=== PATIENT | male | born 1960 | race Caucasian/White ===

== ENCOUNTER 2025-08-09 15:11 | Inpatient (IN) | payer MEDICARE, SELFPAY ==
[2025-08-09] VITALS (15 sets, daily range): BP systolic 84–147; BP diastolic 68–110; PULSE 84–140; RESP 14–23; TEMP 36.4–36.6; O2SAT 95–100; BMI 16.1
--- NOTE | ~2025-08-09 | XR_ITS ---
Examination: XR chest 1V portable Clinical History: shortness of breath Comparison: 08/09/2025 Technique: Portable AP Findings: Heart size upper limit of normal. Emphysema, scattered scarring, right apical bulla. Small pleural effusions. No acute bony abnormality. IMPRESSION: 1. No significant change from 2 days prior. 2. Pleural effusions with bibasilar atelectasis. 3. Emphysema. Reviewed, dictated and finalized at location R. TRY KILLER
--- NOTE | ~2025-08-09 | XR_ITS ---
EXAMINATION: XR chest PICC line, 08/11/2025 15:03 COLUMNIST/COMMENTATOR HISTORY: PICC placement COMPARISON: No comparisons available. Technique: Single view. Findings: Probable bullous formation noted in the right lung apex otherwise the lungs are clear. No pneumothorax. Heart is normal size. Mediastinal and hilar contours are within normal limits. Bony thorax no acute abnormality. Right PICC line terminates in the SVC. Impression: No acute cardiopulmonary abnormality. Reviewed, dictated and finalized at location P. MNIST/COMMENTATOR Impression: No acute cardiopulmonary abnormality.
--- NOTE | ~2025-08-09 | CT_ITS ---
EXAMINATION:CT diagnostic chest wo con DATE: 08/09/2025 15:49 INDICATION: Abnormal chest x-ray TECHNIQUE: Computed tomography (CT) of the chest was performed without intravenous contrast. The dose-length product (DLP) was 176.07 mGy-cm. COMPARISON: None. FINDINGS: Prominent right upper lobe peripheral/pleural air cysts are present with the largest in the apex measuring 7.6 x 7.2 x 5.7 cm. A 6.6 x 3.7 x 3.2 cm small cyst is present just medial and inferiorly. Smaller air cysts are noted along the margins of the right upper lobe, and a small air cysts are present in the left apical region as well. No pneumothorax. Small bilateral pleural effusions, right greater than left. Patchy groundglass opacification in the lung bases right greater than left. No focally defined consolidation. Diffuse centrilobular emphysematous changes in the lung do. Central large airways are patent. Heart and great vessels normal size. Small pericardial effusion with greatest transverse dimension of fluid measuring 8 mm. Diffuse degenerative changes throughout the bones. No acute process seen in the visualized portions of the upper abdomen. Coronary artery and atherosclerotic calcifications noted. Extra thoracic soft tissues unremarkable. IMPRESSION: 1. No pneumothorax. Large right apical air cyst formation with advanced emphysematous changes also present. Milder air cysts formation of the left apical region. 2. Small bilateral pleural effusions, and small pericardial effusion. Mild patchy groundglass opacification lung bases may represent mild edema versus developing pneumonitis. 3. Other chronic findings as above. Reviewed, dictated and finalized at location A. COACHING IMPRESSION: 1. No pneumothorax. Large right apical air cyst formation with advanced emphyse matous changes also present. Milder air cysts formation of the left apical andie on. 2. Small bilateral pleural effusions, and small pericardial effusion. Mild patc hy groundglass opacification lung bases may represent mild edema versus develop ing pneumonitis. 3. Other chronic findings as above.
--- NOTE | ~2025-08-09 | XR_ITS ---
EXAMINATION: XR chest 1V portable DATE: 08/09/2025 15:26 INDICATION: Shortness of breath TECHNIQUE: A single frontal view of the chest was obtained. COMPARISON: July 11, 2005 FINDINGS: Slight blunting of the lateral costophrenic angles may represent trace bibasilar pleural effusions. Mid and upper lung do are clear. Heart size upper limits normal. Radiolucency in the right apical region could be associated with variant azygos anatomy, however pneumothorax is not excluded. IMPRESSION: Possible small right apical pneumothorax. Trace bibasilar effusions. Correlate with chest CT. Reviewed, dictated and finalized at location A. STRINGER IMPRESSION: Possible small right apical pneumothorax. Trace bibasilar effusions . Correlate with chest CT.
--- NOTE | 2025-08-09 15:02 | ECG_ITS ---
Test Date: 2025-08-09 15:06:51 Measurements Intervals [place] Rate: 141 P: 0 MS: 0 QRS: 94 QRSD: 93 T: 82 QT: 292 QTc: 447 Interpretive Statements ATRIAL FIBRILLATION WITH RAPID VENTRICULAR RESPONSE RIGHT AXIS DEVIATION LEFT VENTRICULAR HYPERTROPHY WITH ST-T CHANGE CONSIDER ANTERIOR INFARCT, AGE INDETERMINATE HIGH LATERAL INFARCT, AGE INDETERMINATE ABNORMAL ECG No previous ECG available for comparison Electronically Signed On 08-09-2025 16:18:43 INFORMATICS NURSE SPECIALIST by Basilio Aquino D.O.
[2025-08-09 15:19] LABS: Hematocrit 46.3 % (42.0-52.0); Hemoglobin 15.1 g/dL (14.0-18.0); Mean Corpuscular HGB Conc 32.6 g/dl (32-36); Mean Corpuscular Hemoglobin 30.5 pg (26-34); Mean Corpuscular Volume 93.5 fl (80-100); Platelet Count Result 234 k/mm3 (150-375); Red Blood Count 4.95 M/mm3 (4.6-6.20); White Blood Count 8.0 K/mm3 (4.5-10.0)
[2025-08-09 15:30] LABS: Alanine Aminotransferase 19 U/L (6-50); Albumin Level 4.1 g/dL (3.5-5.1); Alkaline Phosphatase 71 U/L (38-126); Anion Gap 7 mmol/L (4-12); Aspartate Amino Transferase 22 U/L (17-59); Bilirubin,Total 0.8 mg/dL (0.2-1.3); Blood Urea Nitrogen 20 mg/dL (9-20); Calcium 9.2 mg/dL (8.4-10.2); Carbon Dioxide 24 mmol/L (22-30); Chloride 104 mmol/L (98-107); Estimated Glomerular Filt Rate > 60; Glucose 99 mg/dL (65-110); Potassium 4.5 mmol/L (3.4-5.0); Sodium 135 mmol/L (137-145); Total Protein 7.2 g/dL (6.3-8.2)
[2025-08-09 15:34] LABS: Band Neutrophils Percent 1 % (0-6); Neutrophils Absolute Manual 5.36 K/mm3 (1.3-6.7); Neutrophils Percent Manual 66 % (46-73); Total Cells Counted 100
[2025-08-09 15:35] LABS: Lymphocytes Absolute Manual 2.00 K/mm3 (1.1-4.5); Lymphocytes Percent Manual 25 % (18-44); Monocytes Absolute Manual 0.64 K/mm3 (0.1-0.90); Monocytes Percent Manual 8 % (3-9); Ovalocytes Occasional; Schistocytes None Seen
[2025-08-09] MEDS: dilTIAZem 100 MG/100 ML 100 MG/100 ML BAG IV CONT ×2 (15:56→16:20)
[2025-08-09 16:19] LABS: NT Pro B Type Natriuretic Pept 7800 pg/mL (19.9-100); Troponin I 0.050 ng/mL (0.000-0.034)
[2025-08-09] MEDS: SODIUM CHLORIDE 0.9% IV 1,000 ML 999 ML IV CONT ×2 (16:19→20:20)
[2025-08-09 16:49] LABS: Influenza A QL RT-PCR Negative (Negative); Influenza B QL RT-PCR Negative (Negative); RSV RNA, RT-PCR Negative (Negative); SARS-CoV-2 RNA PCR Negative (Negative)
--- NOTE | 2025-08-09 16:54 | ED_ITS ---
HPI - SOB/Dyspnea General Chief Complaint: Shortness of Breath/Dyspnea Stated Complaint: SOB History of Present Illness HPI Narrative: Patient is a 65-year-old male who presents ER with shortness of breath. Ongoing over last 4-5 days. He thought he would come down with a viral illness. Any time he exerts himself he is dyspneic after 2-3 steps. No chest pain. No productive cough. No fevers or chills. He went to an urgent care to be evaluated and was found to be in AFib with RVR. No previous history of atrial fibrillation. Related Data Allergies Allergy/AdvReac Type Severity Reaction Status Date / Time No Known Allergies Allergy Verified 08/09/25 15:23 Review of Systems 2 Review of Systems: All systems reviewed & are unremarkable except as noted in HPI and below Constitutional: Constitutional: Reports no additional constitutional complaints ENT: Reports system reviewed and no additional complaints, except as documented Cardiovascular: Cardiovascular: Reports no additional cardiovascular complaints Respiratory: Respiratory: Reports no additional respiratory complaints Gastrointestinal: Gastrointestinal: Reports no additional gastrointestinal complaints Musculoskeletal: Musculoskeletal: Reports no additional musculoskeletal complaints [facility] Past Medical History Medical History (Updated 08/09/25 @ 18:23 by Kale Doyle MD) Mitral valve prolapse Pneumothorax Surgical History Surgical History (Updated 08/09/25 @ 18:19 by Kale Doyle MD) History of hernia surgery Social History Social History Smoking end date: 08/30/11 Alcohol intake: never Exam 2 Narrative: GENERAL: Well-appearing, thin, and in no acute distress. HEAD: Normocephalic, atraumatic. ENT: Mucous membranes moist. NECK: Supple. CHEST: Coarse lung sounds that clear with coughing. No respiratory distress. HEART: Irregular regular rate and rhythm that is tachycardic. Normal peripheral pulses. ABDOMEN: Soft, nontender, nondistended. EXTREMITIES: Normal range of motion. No edema. SKIN: Warm, dry, no rash. NEURO: Alert and oriented x3. PSYCH: Normal mood and affect. Course Course Emergency Course: Heart rate responding well to diltiazem. Discussed with cardiology who recommends oral metoprolol 12.5 mg and also has some IM Lovenox at 1 milligram/kilogram. Patient will be admitted to the hospitalist service for further evaluation. No pneumothorax on CT scan. Vital Signs Vital signs: Vital Signs Temperature 97.8 F 08/09/25 14:48 Pulse Rate 139 H 08/09/25 14:48 Respiratory Rate 19 08/09/25 14:48 Blood Pressure 147/110 H 08/09/25 14:48 Pulse Oximetry 95 08/09/25 14:48 Oxygen Delivery Room Air 08/09/25 14:48 Temperature 97.8 F 08/09/25 14:48 Pulse Rate 114 H 08/09/25 16:34 Respiratory Rate 16 08/09/25 16:34 Blood Pressure 122/101 H 08/09/25 16:34 Pulse Oximetry 100 08/09/25 16:34 Oxygen Delivery Room Air 08/09/25 15:06 MDM Differential Diagnosis Differential Diagnosis: AFib with RVR, pneumothorax, sepsis, ACS Lab Data 08/09/25 15:11 08/09/25 15:11 Labs: Lab Results 08/09/25 08/09/25 Range/Units 15:10 15:11 WBC 8.0 (4.5-10.0) K/mm3 RBC 4.95 (4.6-6.20) M/mm3 Hgb 15.1 (14.0-18.0) g/dL Hct 46.3 (42.0-52.0) % MCV 93.5 (80-100) fl MCH 30.5 (26-34) pg MCHC 32.6 (32-36) g/dl RDW 13.1 (11.5-14.5) % Plt Count 234 (150-375) k/mm3 MPV 11.5 H (7.4-10.4) fl Immature Gran % (Auto) Not Reportable Neut % (Auto) Not Reportable Lymph % (Auto) Not Reportable [place] % (Auto) Not Reportable Eos % (Auto) Not Reportable Baso % (Auto) Not Reportable Lymph # (Auto) Not Reportable [place] # (Auto) Not Reportable Eos # (Auto) Not Reportable Baso # (Auto) Not Reportable Abs Immat Gran (auto) Not Reportable Absolute Neuts (auto) Not Reportable Absolute Nucleated RBC Not Reportable Total Counted 100 Neutrophils % (Manual) 66 (46-73) % Band Neutrophils % 1 (0-6) % Lymphocytes % (Manual) 25 (18-44) % Monocytes % (Manual) 8 (3-9) % Nucleated RBC % Not Reportable Abs Neuts (Manual) 5.36 (1.3-6.7) K/mm3 Abs Lymphs (Manual) 2.00 (1.1-4.5) K/mm3 Abs Monocytes (Manual) 0.64 (0.1-0.90) K/mm3 Platelet Estimate Adequate (Adequate) Ovalocytes Occasional Schistocytes None seen Sodium 135 L (137-145) mmol/L Potassium 4.5 (3.4-5.0) mmol/L Chloride 104 (98-107) mmol/L Carbon Dioxide 24 (22-30) mmol/L Anion Gap 7 (4-12) mmol/L BUN 20 (9-20) mg/dL Creatinine 0.96 (0.7-1.3) mg/dL Estim Creat Clear Calc Not Reportable Estimated GFR > 60 (59 - ) Glucose 99 (65-110) mg/dL Calcium 9.2 (8.4-10.2) mg/dL Total Bilirubin 0.8 (0.2-1.3) mg/dL AST 22 (17-59) U/L ALT 19 (6-50) U/L Alkaline Phosphatase 71 (38-126) U/L Troponin I 0.050 H* (0.000-0.034) ng/mL NT-Pro-B Natriuret Pep 7800 H (19.9-100) pg/mL Total Protein 7.2 (6.3-8.2) g/dL Albumin 4.1 (3.5-5.1) g/dL Influenza A (RT-PCR) Negative (Negative) Influenza B (RT-PCR) Negative (Negative) RSV (RT-PCR) Negative (Negative) SARS-CoV-2 RNA (RT-PCR) Negative (Negative) Imaging Data Radiologist's impression: ITS Impressions Chest X-Ray 08/09/25 15:27 IMPRESSION: Possible small right apical pneumothorax. Trace bibasilar effusions. Correlate with chest CT. Chest CT 08/09/25 15:51 IMPRESSION: 1. No pneumothorax. Large right apical air cyst formation with advanced emphysematous changes also present. Milder air cysts formation of the left apical region. 2. Small bilateral pleural effusions, and small pericardial effusion. Mild patchy groundglass opacification lung bases may represent mild edema versus developing pneumonitis. 3. Other chronic findings as above. ECG Data EKG #1: ECG completion date: 08/09/25 ECG completion time: 15:06 tachycardia (141), atrial fibrillation, non-specific ST changes, normal QRS, normal QT and right axis Critical Care Time Critical Care Time Critical Care Time: Yes Time Type: Intermittent Initial evaluation, discuss w/ involved parties, attempting to gather old records: 10 minutes Documenting medical record: 5 minutes Review of results (EKG's, labs, imaging): 5 minutes Serial repeat bedside evaluation: 10 minutes Discussing case with multiple memebers of the care team and consultants: 5 minutes Total Critical Care Time: 35 Discharge Plan Discharge Clinical Impression: Atrial fibrillation with RVR Patient Disposition: Still a Patient Condition: Stable Patient Language: Sinhala Follow-up/Referrals: UNKNOWN,DOCTOR [Primary Care Provider]
--- NOTE | 2025-08-09 17:51 | PC.NURSE ---
Pharmacy called by this RN about ordered metoprolol and lovenox. Per pharmacist, they are tubing it up now. Pt. states he no longer has palpitations and his SOB is gone. Pt. is resting comfortably in bed. No requests at this time.
[2025-08-09] MEDS: METOPROLOL TARTRATE 12.5 MG TABLET PO (18:01)
[2025-08-09] MEDS: ENOXAPARIN 60 MG/0.6 ML SYRINGE SUB-Q (18:01)
[2025-08-09 19:02] LABS: Troponin I 0.052 ng/mL (0.000-0.034)
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
--- NOTE | 2025-08-09 20:11 | WPCEDHO ---
ED Hand Off Checklist All vitals saved: YES IV Site documented: YES All med administrations documented: YES Triage Note Triage Note Pt to ED via [facility] from 08/09/25 14:48 [facility] with c/o a-fib with RVR. Pt states he thought he had a bug a week ago that wouldnt go away so he went to urgent care. Pt was put on a monitor and was observed to be in a-fib with RVR. Pt was taking plavix and vicodin but stopped taking them around 3 years ago. Pt denies pain, n/v/d, palpitations. Pt reports SOB. Pt states he had a mitral valve prolapse when he was a child. Pt received 300mL fluids from EMS. Allergies No Known Allergies Allergy (Verified 08/09/25 15:23) Active Medications including assessments/comments Diltiazem HCl (Cardizem 100 Mg/100 Ml) 100 mg in 100 mls @ 10 mls/hr IV CONT .Q10H STA; Protocol Stop: 08/10/25 02:00 Last Titration: 08/09/25 16:40 Dose: 10 mg/hr, 10 mls/hr Documented By: KJT Infusion/Titration Document 08/09/25 16:40 KJT (Rec: 08/09/25 17:00 KJT [id number]) Intake IV Site Peripheral Access Left Antecubital Intake 2.4 Cumulative Intake ( 2.5 bag) Cumulative Intake ( 2.5 Rx) Container Volume 97.5 Waste Amount 0 Dosing Dose Rate 10 Infusion Rate 10 Cumulative Dose 2.5 Increase/Decrease Increased Elapsed Time Elapsed Time ( 20m minutes) Diltiazem Infusion Assessment Document 08/09/25 16:40 KJT (Rec: 08/09/25 17:00 KJT [id number]) Infusion Action Diltiazem Infusion Titrated/Rate Changed Action Pulse Pulse Rate (60-100) 121 H Blood Pressure Blood Pressure (100/ 108/85 60-140/90) Blood Pressure Mean 92 (mmHg) Titration: 08/09/25 16:21 Dose: 7.5 mg/hr, 7.5 mls/hr Documented By: KJT Infusion/Titration Document 08/09/25 16:21 KJT (Rec: 08/09/25 16:22 KJT [id number]) Intake IV Site Peripheral Access Left Antecubital Intake 0.1 Cumulative Intake ( 0.1 bag) Cumulative Intake ( 0.1 Rx) Container Volume 99.9 Waste Amount 0 Dosing Dose Rate 7.5 Infusion Rate 7.5 Cumulative Dose 0.1 Increase/Decrease Increased Elapsed Time Elapsed Time ( 1m minutes) Diltiazem Infusion Assessment Document 08/09/25 16:21 KJT (Rec: 08/09/25 16:22 KJT [id number]) Infusion Action Diltiazem Infusion Titrated/Rate Changed Action Pulse Pulse Rate (60-100) 108 H Blood Pressure Blood Pressure (100/ 102/89 60-140/90) Blood Pressure Mean 93 (mmHg) Admin: 08/09/25 16:20 Dose: 5 mg/hr, 5 mls/hr Documented By: SHERRIE Infusion/Titration Document 08/09/25 16:20 KJT (Rec: 08/09/25 16:20 KJT [id number]) Intake IV Site Peripheral Access Left Antecubital Container Volume 100 Waste Amount 0 Dosing Dose Rate 5 Infusion Rate 5 Increase/Decrease Started Elapsed Time Elapsed Time ( 0m minutes) Diltiazem Infusion Assessment Document 08/09/25 16:20 KJT (Rec: 08/09/25 16:20 KJT [id number]) Infusion Action Diltiazem Infusion Initiated Action Pulse Pulse Rate (60-100) 118 H Blood Pressure Blood Pressure (100/ 102/89 60-140/90) Blood Pressure Mean 93 (mmHg) Administered/Completed Medications Discontinued Medications Diltiazem HCl (Diltiazem Hcl Inj 25 Mg/5 Ml Vial) 10 mg IV PUSH ONCE STA Stop: 08/09/25 15:25 Last Admin: 08/09/25 15:34 Dose: 10 mg Documented By: TRISTON Enoxaparin Sodium (Enoxaparin 60 Mg/0.6 Ml Syringe) 60 mg SUB-Q ONCE STA Stop: 08/09/25 17:29 Last Admin: 08/09/25 18:01 Dose: 60 mg Documented By: CAYETANO Diltiazem HCl (Cardizem 100 Mg/100 Ml) 100 mg in 100 mls @ 0 mls/hr IV CONT .Q0M STA Stop: 08/09/25 15:39 Last Admin: 08/09/25 15:56 Dose: 5 mg/hr, 5 mls/hr Documented By: SHERRIE Sodium Chloride (Normal Saline Iv) 1,000 mls @ 999 mls/hr IV CONT .Q1H1M STA Stop: 08/09/25 17:15 Last Infusion: 08/09/25 17:20 Dose: Infused Documented By: Admin: 08/09/25 16:19 Dose: 999 mls/hr Documented By: SHERRIE Sodium Chloride (Normal Saline Iv) Confirm Administered Dose 1,000 mls @ as directed .ROUTE .STK-MED ONE Stop: 08/09/25 16:15 Last Admin: 08/09/25 16:18 Dose: Not Given Documented By: SHERRIE Non-Admin Reason: Duplicate Dose Metoprolol Tartrate (Metoprolol Tartrate 12.5 Mg Tablet) 12.5 mg PO ONCE STA Stop: 08/09/25 17:29 Last Admin: 08/09/25 18:01 Dose: 12.5 mg Documented By: CAYETANO Notes 08/09/25 17:51 Nurse Note by [facility] called by this RN about ordered metoprolol and lovenox. Per pharmacist, they are tubing it up now. Pt. states he no longer has palpitations and his SOB is gone. Pt. is resting comfortably in bed. No requests at this time. Initialized on 08/09/25 17:51 - END OF NOTE Interventions/Assessments Cardiac Monitoring Start: 08/09/25 14:43 Freq: Status: Active Protocol: Document 08/09/25 15:35 JPM (Rec: 08/09/25 15:35 JPM [id number]) Management Advisor Assessment Management Advisor Yes Applied Pulse Rate (60-100) 140 H EKG Rythm Atrial Fibrillation IV / Saline Lock, Insert Start: 08/09/25 15:03 Freq: STAT Status: Active Protocol: Document 08/09/25 15:16 MCO (Rec: 08/09/25 15:17 MCO [id number]) IV Assessment Peripheral Access Right Antecubital IV Catheter Access Initiated IV Insertion Date 08/09/25 IV Insertion Time 15:17 Catheter Gauge 18 Ultrasound Used for No Placement IV Site Assessment WNL IV Care and WNL Maintenance Peripheral Access Left Antecubital IV Catheter Access Initiated Before Arrival IV Insertion Date 08/09/25 Catheter Gauge 20 IV Site Assessment WNL IV Care and WNL Maintenance PA: Cardiovascular Assessment Start: 08/09/25 14:43 Freq: Status: Active Protocol: Document 08/09/25 15:06 MCO (Rec: 08/09/25 15:16 MCO [id number]) Cardiovascular Assessment Cardiovascular Dizziness,Dyspnea,Lightheadedness Symptoms Skin Description Warm Jugular Vein None Distention PA: Respiratory Assessment Start: 08/09/25 14:43 Freq: Status: Active Protocol: Document 08/09/25 15:06 MCO (Rec: 08/09/25 15:16 MCO [id number]) Respiratory Assessment Symptoms Congestion,Shortness of Breath at Rest,Shortness of Breath With Exertion Effort Short of Breath Pattern Regular Depth Normal Posterior Bilateral Throughout Phase Inspiratory & Expiratory Lung Sounds Diminished Cough Description Acute,Productive Cough Frequency Intermittent Sputum Amount Small Sputum Color Green,White Cough Reflex Present Oxygen Delivery Oxygen Delivery Room Air Last Vital Signs Temperature 97.8 F 08/09/25 14:48 Pulse Rate 87 08/09/25 20:04 Respiratory Rate 23 H 08/09/25 20:04 Pulse Oximetry 99 08/09/25 20:04 Blood Pressure 84/68 L 08/09/25 20:04 Blood Pressure Mean 73 08/09/25 20:04 Blood Pressure Position Supine 08/09/25 20:04 Oxygen Delivery Room Air 08/09/25 15:06 Weight 68 kg 08/09/25 16:58 Last Result - Abnormals Only MPV 11.5 fl (7.4-10.4) H 08/09/25 15:11 Sodium 135 mmol/L (137-145) L 08/09/25 15:11 Troponin I 0.052 ng/mL (0.000-0.034) H* 08/09/25 18:22 NT-Pro-B Natriuret Pep 7800 pg/mL (19.9-100) H 08/09/25 15:10 Most Recent Suicide Severity Rating Suicide Severity Rating NO RISK INDICATED 08/09/25 14:48
--- NOTE | 2025-08-09 20:31 | ECG_ITS ---
Test Date: 2025-08-10 07:47:00 Measurements Intervals [place] Rate: 93 P: 0 OH: 0 QRS: 93 QRSD: 94 T: 121 QT: 374 QTc: 467 Interpretive Statements ATRIAL FIBRILLATION RIGHT AXIS DEVIATION ANTEROSEPTAL INFARCT, AGE INDETERMINATE HIGH LATERAL INFARCT, AGE INDETERMINATE BASELINE ARTIFACT- V3-V5 ABNORMAL ECG Compared to ECG 08/09/2025 15:06:51 HEART RATE HAS DECREASED Electronically Signed On 08-10-2025 08:01:36 REAL ESTATE CLOSING COORDINATOR by Basilio Aquino D.O.
--- NOTE | 2025-08-09 22:15 | ADMGEN ---
This patient, Anabel Gayle, was admitted to IMU Room 211-01 at 2039. Patient/family oriented to hospital policies and general routines including ID bracelet, bed and alarms, visiting hours, pain management, procedures, bathroom and other care routines, personal items, smoking policy, room service/diet, and visiting hours. Information on how to activate the Rapid Response Team has been discussed. Patient/Family are encouraged to report perceived risks to care and to ask questions if they do not understand what they are told or what they should do.
[2025-08-09 22:55] LABS: Troponin I 0.056 ng/mL (0.000-0.034)
[2025-08-09 23:08] LABS: Thyroid Stimulating Hormone Reflex 5.440 uIU/mL (0.465-4.68)
[2025-08-10] VITALS (26 sets, daily range): BP systolic 91–144; BP diastolic 61–120; PULSE 74–122; RESP 15–22; TEMP 36.3–36.8; O2SAT 92–99
--- NOTE | 2025-08-10 | ECHO_ITS ---
Patient Info Name: Anabel Gayle Age: 65 years : 1960 Gender: Male Ht: 64 in Wt: 149 lbs BSA: 1.76 m2 HR: 93 bpm BP: 96 / 61 mmHg Heart Rhythm: Atrial Fibrillation Technical Quality: Good Exam Date: 08/10/2025 8:55 AM Patient Status: I Admit Date: 08/09/2025 Exam Type: CA echo doppler color flow Complete two-dimensional, color flow and Doppler transthoracic echocardiogram is performed. Staff Referring Physician: Kale Doyle MD Clothing Sales Assistant: Sondra Ruff Attending Provider: Magda Corral Summary 1. Complete two-dimensional, color flow and Doppler transthoracic echocardiogram is performed. 2. The left ventricle is moderately dilated with severely reduced systolic function. There is severe eccentric left ventricular hypertrophy. The left ventricular ejection fraction is visually estimated to be 25-30%. 3. The right ventricle is normal in size with mildly reduced systolic function. 4. The mitral valve leaflets are normal. There is posteriorly directed eccentric mitral regurgitation that is likely severe. Left Ventricle The left ventricle is moderately dilated with severely reduced systolic function. There is severe eccentric left ventricular hypertrophy. The left ventricular ejection fraction is visually estimated to be 25-30%. Right Ventricle The right ventricle is normal in size with mildly reduced systolic function. Left Atria The left atrium is dilated. Right Atria The right atrium is dilated. Atrial Septum The atrial septum is normal. Aortic Valve The aortic valve is trileaflet and opens well. There is no aortic regurgitation. Pulmonic Valve The pulmonic valve is grossly normal. There is no pulmonic valve regurgitation. Mitral Valve The mitral valve leaflets are normal. There is posteriorly directed eccentric mitral regurgitation that is likely severe. Tricuspid Valve The tricuspid valve is normal. There is trace tricuspid regurgitation. Pericardium/Pleural There is trace pericardial effusion. Inferior Vena Cava Normal inferior vena cava with <50% collapse upon inspiration consistent with elevated right atrial pressure, 8 mmHg. Aorta The aortic root at the level of the sinus of Valsalva measures 3.7 cm in diameter. Left Ventricular Outflow Tract Name Value Normal LVOT 2D LVOT Diameter 2.0 cm LVOT Doppler LVOT Peak Velocity 62 cm/s LVOT Peak Gradient 1 mmHg LVOT Mean Gradient 0 mmHg LVOT VTI 10 cm LVOT VTI/AV VTI Ratio 0.6 LVOT Stroke Volume 32 ml LVOT CO 2.0 l/min LVOT CI 1.2 l/min/m2 Pulmonic Valve Name Value Normal RVOT Doppler RVOT Peak Velocity 43 cm/s RVOT Peak Gradient 1 mmHg PV Doppler PV Peak Velocity 72 cm/s PV Peak Gradient 1 mmHg Mitral Valve Name Value Normal MV Doppler MV Peak Gradient 13 mmHg MV Mean Gradient 5 mmHg MV Area (Cont Eq VTI) 1.2 cm2 MV Regurgitation Doppler MR Peak Gradient 57 mmHg MV Diastolic Function MV E Peak Velocity 178 cm/s MV A Peak Velocity 0 cm/s MV E/A 450.1 MV Decel Time (PW) 142 ms MV Annular TDI MV E/e' (Septal) 25.6 MV E/e' (Lateral) 24.1 MV E/e' (Average) 24.8 Tricuspid Valve Name Value Normal TV Regurgitation Doppler TR Peak Velocity 402 cm/s TR Peak Gradient 65 mmHg Estimated PAP/RSVP RA Pressure 8 mmHg <=5 PA Systolic Pressure 73 mmHg <36 RV Systolic Pressure 73 mmHg <36 TV Annular TDI TV Lateral Candelaria s' Velocity 8.8 cm/s >=9.5 Aorta Name Value Normal Ascending Aorta Ao Root Diameter (MM) 3.6 cm Ao Root Diam Index (MM) 2.1 cm/m2 Aortic Valve Name Value Normal AV Doppler AV Peak Velocity 102 cm/s AV Peak Gradient 4 mmHg AV Mean Gradient 2 mmHg AV VTI 16 cm AV Area (Cont Eq VTI) 2.0 cm2 >=3.0 AV Area (Cont Eq Matthew) 2.0 cm2 AV DI (Matthew) 0.61 AV Regurgitation 2D LVOT Area 3.2 cm2 Ventricles Name Value Normal LV Dimensions 2D/MM IVS Diastolic Thickness (2D) 0.8 cm 0.6-1.0 LVID Diastole (2D) 7.0 cm 4.2-5.8 LVIW Diastolic Thickness (2D) 0.8 cm 0.6-1.0 LVID Systole (2D) 5.8 cm 2.5-4.0 LVOT Diameter 2.0 cm LV Mass (2D Cubed) 247.92 g 88.00-224.00 LV Mass Index (2D Cubed) 141 g/m2 49-115 Relative Wall Thickness (2D) 0.23 <=0.42 LV Fractional Shortening/Ejection Fraction 2D/MM LV Fractional Shortening (2D) 18 % 25-43 LV EF (2D Teichholz) 37 % LV Diastolic Volume (4C MOD) 192 ml LV EF (4C MOD) 46 % LV Diastolic Volume (2C MOD) 252 ml LV EF (2C MOD) 44 % LV Diastolic Volume (BP MOD) 229 ml 62-150 LV Diastolic Volume Index (BP MOD) 130 ml/m2 34-74 LV Systolic Volume (BP MOD) 130 ml 21-61 LV Systolic Volume Index (BP MOD) 74 ml/m2 11-31 LV EF (BP MOD) 43 % 52-72 LV Diastolic Length (4C) 9.3 cm LV Systolic Length (4C) 7.5 cm LV Stroke Volume (4C MOD) 88 ml Atria Name Value Normal LA Dimensions LA Dimension (MM) 5.5 cm 3.0-4.0 LA Volume (4C A-L) 107 ml RA Dimensions RA Area (4C) 17.5 cm2 <=18.0 Report Signatures
[2025-08-10] MEDS: dilTIAZem 100 MG/100 ML 100 MG/100 ML BAG IV CONT (01:55)
[2025-08-10] MEDS: FUROSEMIDE INJ 40 MG/4 ML VIAL 20 MG IV PUSH ×3 (02:37→18:23)
[2025-08-10 04:28] LABS: Anion Gap 7 mmol/L (4-12); Blood Urea Nitrogen 18 mg/dL (9-20); Calcium 8.9 mg/dL (8.4-10.2); Carbon Dioxide 24 mmol/L (22-30); Chloride 107 mmol/L (98-107); Estimated CRCL calculation 60 ml/min; Estimated Glomerular Filt Rate > 60; Glucose 82 mg/dL (65-110); Potassium 4.2 mmol/L (3.4-5.0); Sodium 138 mmol/L (137-145)
[2025-08-10] MEDS: levoFLOXacin 750 MG/D5W 150 ML 750 MG/150 ML BAG 100 MG IVPB (09:32)
[2025-08-10] MEDS: METOPROLOL TARTRATE 12.5 MG TABLET PO (09:33)
[2025-08-10] MEDS: APIXABAN 5 MG TABLET PO ×2 (09:33→21:16)
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
[2025-08-10 11:11] LABS: MRSA (PCR) NOT DETECTED (NOT DETECTE)
--- NOTE | 2025-08-10 14:27 | PM.IMPN2 ---
Assessment and Plan Assessment and Plan (1) Atrial fibrillation with RVR: Code(s): I48.91 - Unspecified atrial fibrillation Status: Acute (2) Elevated troponin: Code(s): R79.89 - Other specified abnormal findings of blood chemistry Status: Acute (3) Atherosclerosis: Code(s): I70.90 - Unspecified atherosclerosis Status: Acute (4) Cystic-bullous disease of lung: Code(s): J98.4 - Other disorders of lung Status: Acute (5) CHF (congestive heart failure): Qualifiers: Heart failure type: high output Qualified Code(s): I50.83 - High output heart failure Code(s): I50.9 - Heart failure, unspecified Status: Acute Plan Afib RVR still tachycardic Continue Metoprolol 25mg bid and eliquis For COLETTE with cardioversion on Wednesday cardiology following Pneumonia CT Chest reviewed Blood culture, MRSA Started Levaquin Cardiomyopathy ER showed EF 25-30% Continue Lasix Lifevest on discharge Elevated troponin likely demand from Afib trend troponin DVT prophylaxis on Eliquis Monitor Subjective Date/time seen: 08/10/25 14:27 Interval history: Comfortable at bedside Review of Systems Review of Systems: 12 systems were reviewed with pertinent positives and negatives per HPI. Except as documented in the HPI, all other systems were reviewed and are negative. Exam Narrative: Weight 68 kg BMI 18.2 Const: Other: Thin body habitus, appears older than stated age, no acute distress HENMT: Other: Mucous membranes are moist, no oral pharyngeal erythema, dentures in upper and lower jaw Eyes: Other: No scleral icterus, bilateral lens implants noted, pupils are equal and reactive Neck: Other: Positive JVD, no lymphadenopathy Resp: Other: Accessory muscle use, tachypnea, crackles at the bases Cardio: Other: Irregularly irregular, tachycardic, 2+ bilateral radial and pedal pulses GI: Other: Soft, nontender, nondistended, positive bowel sounds Skin: Other: No jaundice, no pallor Neuro: Other: Alert orient x4, speech is clear, no facial asymmetry, no localizing neurologic deficits noted during the course of conversation Extrem: Other: 1+ pitting edema to the ankles bilaterally Psych: Other: The patient has markedly pressured speech, flight of thoughts, difficult to redirect, pleasant and cooperative Objective Data Vital Signs Vital Signs: Vital Signs - 24 hr 12/11/25 14:48 08/09/25 15:06 08/09/25 15:35 Temperature 97.8 F Pulse Rate 139 H 140 H Respiratory Rate 19 Blood Pressure 147/110 H Pulse Oximetry 95 Oxygen Delivery Room Air Room Air 08/09/25 15:56 08/09/25 16:20 08/09/25 16:21 Temperature Pulse Rate 111 H 118 H 108 H Respiratory Rate Blood Pressure 103/69 102/89 102/89 Pulse Oximetry Oxygen Delivery 08/09/25 16:34 08/09/25 16:40 08/09/25 17:51 Temperature Pulse Rate 114 H 121 H 95 Respiratory Rate 16 20 Blood Pressure 122/101 H 108/85 107/91 H Pulse Oximetry 100 97 Oxygen Delivery 08/09/25 18:01 08/09/25 18:58 08/09/25 20:04 Temperature Pulse Rate 108 H 89 87 Respiratory Rate 14 23 H Blood Pressure 114/95 H 84/68 L Pulse Oximetry 98 99 Oxygen Delivery 08/09/25 20:40 08/09/25 20:41 08/09/25 22:00 Temperature 97.6 F Pulse Rate 89 91 91 Respiratory Rate 16 Blood Pressure 101/74 Pulse Oximetry 100 Oxygen Delivery 08/09/25 22:00 08/09/25 23:03 08/10/25 00:00 Temperature Pulse Rate 84 Respiratory Rate Blood Pressure Pulse Oximetry Oxygen Delivery Room Air Room Air 08/10/25 00:00 08/10/25 00:47 08/10/25 01:53 Temperature 97.7 F Pulse Rate 74 86 104 H Respiratory Rate 18 Blood Pressure 91/76 L Pulse Oximetry 94 Oxygen Delivery 08/10/25 01:55 08/10/25 02:00 08/10/25 04:00 Temperature Pulse Rate 99 Respiratory Rate Blood Pressure 144/120 H Pulse Oximetry Oxygen Delivery Room Air 08/10/25 04:00 08/10/25 04:00 08/10/25 04:21 Temperature 97.7 F Pulse Rate 97 98 90 Respiratory Rate 15 Blood Pressure 96/61 L Pulse Oximetry 97 Oxygen Delivery 08/10/25 06:00 08/10/25 06:00 08/10/25 06:00 Temperature Pulse Rate 93 93 89 Respiratory Rate Blood Pressure 120/93 H Pulse Oximetry Oxygen Delivery 08/10/25 07:49 08/10/25 07:56 08/10/25 08:00 Temperature 98.2 F Pulse Rate 90 Respiratory Rate 22 H Blood Pressure 111/71 Pulse Oximetry 92 95 Oxygen Delivery Room Air Room Air 08/10/25 08:00 08/10/25 09:33 08/10/25 10:00 Temperature Pulse Rate 103 H 101 H 94 Respiratory Rate Blood Pressure Pulse Oximetry Oxygen Delivery 08/10/25 10:41 08/10/25 11:37 08/10/25 12:34 Temperature 97.4 F L Pulse Rate 122 H 95 Respiratory Rate 22 H Blood Pressure 104/62 114/94 H Pulse Oximetry 98 Oxygen Delivery Room Air 08/10/25 12:36 Temperature Pulse Rate 108 H Respiratory Rate Blood Pressure Pulse Oximetry Oxygen Delivery Intake/Output Intake/Output: Intake & Output 08/07/25 08/08/25 08/09/25 08/10/25 23:59 23:59 23:59 23:59 Intake Total 1055.8 1177.4 Output Total 1525 Balance 1055.8 -347.6 Meds/Results Medications: Active Medications Generic Name Dose Route Start Last Admin Trade Name Freq PRN Reason Stop Dose Admin Acetaminophen 650 mg 08/09/25 17:59 Acetaminophen 325 Mg Tablet PO Q4H PRN Mild Pain (1-3) or Fever Hydrocodone Bitart/Acetaminophen 1 tab 08/09/25 17:59 Hydrocodone/Acetaminophen (*Crx) 5-325 Mg Tablet PO Q4H PRN Pain Rated 4-6 Apixaban 5 mg 08/10/25 09:00 08/10/25 09:33 Apixaban 5 Mg Tablet PO 5 mg Q12HR MICAELA Administration Furosemide 20 mg 08/10/25 09:00 08/10/25 09:33 Furosemide Inj 40 Mg/4 Ml Vial IV PUSH 20 mg BID MICAELA Administration Levofloxacin/Dextrose 750 mg in 150 mls @ 100 mls/hr 08/10/25 08:00 08/10/25 12:00 Levaquin 750 Mg/D5w 150 Ml IVPB Infused QAM MICAELA Infusion Metoprolol Tartrate 25 mg 08/10/25 21:00 Metoprolol Tartrate 25 Mg Tablet PO Q12HR MICAELA Ondansetron HCl 4 mg 08/09/25 17:59 Ondansetron Inj 4 Mg/2 Ml Vial IV PUSH Q4H PRN Nausea Perflutren Lipid Microsphere 0 ml 08/09/25 19:55 Perflutren Lipid Microspheres 1.5 Ml Vial Diluted To 10 Ml Total Volume IV PUSH 08/12/25 19:56 ONCE PRN adequate visualization Protocol Sacubitril/Valsartan 1 tab 08/10/25 21:00 Sacubitril/Valsartan 12-13 Mg Tablet PO Q12HR [facility] Radiology Results: ITS Impressions Chest X-Ray 08/09/25 15:27 IMPRESSION: Possible small right apical pneumothorax. Trace bibasilar effusions. Correlate with chest CT. Chest CT 08/09/25 15:51 IMPRESSION: 1. No pneumothorax. Large right apical air cyst formation with advanced emphysematous changes also present. Milder air cysts formation of the left apical region. 2. Small bilateral pleural effusions, and small pericardial effusion. Mild patchy groundglass opacification lung bases may represent mild edema versus developing pneumonitis. 3. Other chronic findings as above. Labs Labs: Laboratory Results - last 24 hr 08/09/25 08/09/25 08/09/25 15:10 15:11 18:22 WBC 8.0 RBC 4.95 Hgb 15.1 Hct 46.3 MCV 93.5 MCH 30.5 MCHC 32.6 RDW 13.1 Plt Count 234 MPV 11.5 H Immature Gran % (Auto) Not Reportable Neut % (Auto) Not Reportable Lymph % (Auto) Not Reportable [place] % (Auto) Not Reportable Eos % (Auto) Not Reportable Baso % (Auto) Not Reportable Lymph # (Auto) Not Reportable [place] # (Auto) Not Reportable Eos # (Auto) Not Reportable Baso # (Auto) Not Reportable Abs Immat Gran (auto) Not Reportable Absolute Neuts (auto) Not Reportable Absolute Nucleated RBC Not Reportable Total Counted 100 Neutrophils % (Manual) 66 Band Neutrophils % 1 Lymphocytes % (Manual) 25 Monocytes % (Manual) 8 Nucleated RBC % Not Reportable Abs Neuts (Manual) 5.36 Abs Lymphs (Manual) 2.00 Abs Monocytes (Manual) 0.64 Platelet Estimate Adequate Ovalocytes Occasional Schistocytes None seen Sodium 135 L Potassium 4.5 Chloride 104 Carbon Dioxide 24 Anion Gap 7 BUN 20 Creatinine 0.96 Estim Creat Clear Calc Not Reportable Estimated GFR > 60 Glucose 99 Calcium 9.2 Total Bilirubin 0.8 AST 22 ALT 19 Alkaline Phosphatase 71 Troponin I 0.050 H* 0.052 H* NT-Pro-B Natriuret Pep 7800 H Total Protein 7.2 Albumin 4.1 TSH (Reflex) Nasal MRSA (PCR) Influenza A (RT-PCR) Negative Influenza B (RT-PCR) Negative RSV (RT-PCR) Negative SARS-CoV-2 RNA (RT-PCR) Negative 08/09/25 08/10/25 08/10/25 22:02 03:35 09:49 WBC RBC Hgb Hct MCV MCH MCHC RDW Plt Count MPV Immature Gran % (Auto) Neut % (Auto) Lymph % (Auto) [place] % (Auto) Eos % (Auto) Baso % (Auto) Lymph # (Auto) [place] # (Auto) Eos # (Auto) Baso # (Auto) Abs Immat Gran (auto) Absolute Neuts (auto) Absolute Nucleated RBC Total Counted Neutrophils % (Manual) Band Neutrophils % Lymphocytes % (Manual) Monocytes % (Manual) Nucleated RBC % Abs Neuts (Manual) Abs Lymphs (Manual) Abs Monocytes (Manual) Platelet Estimate Ovalocytes Schistocytes Sodium 138 Potassium 4.2 Chloride 107 Carbon Dioxide 24 Anion Gap 7 BUN 18 Creatinine 0.95 Estim Creat Clear Calc 60 Estimated GFR > 60 Glucose 82 Calcium 8.9 Total Bilirubin AST ALT Alkaline Phosphatase Troponin I 0.056 H* NT-Pro-B Natriuret Pep Total Protein Albumin TSH (Reflex) 5.440 H Nasal MRSA (PCR) Not detected Influenza A (RT-PCR) Influenza B (RT-PCR) RSV (RT-PCR) SARS-CoV-2 RNA (RT-PCR) Quality VTE Prophylaxis VTE prophylaxis: pharmacologic ordered (Lovenox 1 milligram/kilogram followed by initiation of Eliquis)
[2025-08-10 15:15] LABS: Free T4 Free Thyroxine Reflex 1.41 ng/dL (0.78-2.19)
[2025-08-10 16:02] LABS: Total Triiodothyronine (T3) 1.16 NG/ML (0.82-1.58)
[2025-08-10 18:07] LABS: Cholesterol 182 mg/dL (0-200); HDL Direct 36 mg/dL; Triglycerides 100 mg/dL (<150)
[2025-08-10] MEDS: METOPROLOL TARTRATE 25 MG TABLET PO ×2 (18:23→21:16)
[2025-08-10] MEDS: SACUBITRIL/VALSARTAN 12-13 MG TABLET 1 TAB PO (21:16)
[2025-08-11] VITALS (30 sets, daily range): BP systolic 64–114; BP diastolic 39–94; PULSE 96–133; RESP 14–25; TEMP 36.4–36.6; O2SAT 92–100
[2025-08-11 08:41] LABS: Hematocrit 45.9 % (42.0-52.0); Hemoglobin 15.3 g/dL (14.0-18.0); Mean Corpuscular HGB Conc 33.3 g/dl (32-36); Mean Corpuscular Hemoglobin 30.2 pg (26-34); Mean Corpuscular Volume 90.7 fl (80-100); Platelet Count Result 238 k/mm3 (150-375); Red Blood Count 5.06 M/mm3 (4.6-6.20); White Blood Count 7.6 K/mm3 (4.5-10.0)
[2025-08-11 08:52] LABS: Alanine Aminotransferase 19 U/L (6-50); Albumin Level 3.6 g/dL (3.5-5.1); Alkaline Phosphatase 66 U/L (38-126); Anion Gap 8 mmol/L (4-12); Aspartate Amino Transferase 22 U/L (17-59); Bilirubin,Total 1.1 mg/dL (0.2-1.3); Blood Urea Nitrogen 17 mg/dL (9-20); Calcium 9.1 mg/dL (8.4-10.2); Carbon Dioxide 23 mmol/L (22-30); Chloride 104 mmol/L (98-107); Estimated CRCL calculation 50 ml/min; Estimated Glomerular Filt Rate > 60; Glucose 154 mg/dL (65-110); Magnesium 1.5 mg/dL (1.6-2.3); Potassium 3.9 mmol/L (3.4-5.0); Sodium 135 mmol/L (137-145); Total Protein 6.5 g/dL (6.3-8.2)
[2025-08-11] MEDS: levoFLOXacin 750 MG/D5W 150 ML 750 MG/150 ML BAG 100 MG IVPB (09:35)
[2025-08-11] MEDS: FUROSEMIDE INJ 40 MG/4 ML VIAL 20 MG IV PUSH (09:35)
[2025-08-11] MEDS: APIXABAN 5 MG TABLET PO ×2 (09:35→20:10)
[2025-08-11] MEDS: METOPROLOL TARTRATE 25 MG TABLET PO (09:35)
[2025-08-11] MEDS: SACUBITRIL/VALSARTAN 12-13 MG TABLET 1 TAB PO (09:35)
--- NOTE | 2025-08-11 10:15 | P.PNCA_ITS ---
Progress Note: A&P Assessment and Plan (1) Atrial fibrillation with RVR: Code(s): I48.91 - Unspecified atrial fibrillation Status: Acute Assessment and Plan: Presents with atrial fibrillation with rapid ventricular response. This is a new diagnosis. I discussed the diagnosis of atrial fibrillation with her including the pathophysiology, management strategies, and complications/risks of atrial fibrillation. Given that he also has severe cardiomyopathy with an EF of 25-30%, I think getting him back into sinus rhythm be the best strategy. However, unfortunately he has already eaten today therefore cannot proceed with COLETTE/cardioversion. Will plan for this on Wednesday. In the meantime will control his heart rate. * Given elevated heart rates and soft blood pressure I will start the patient on IV amiodarone bolus and drip. This also will facilitate that to keep heart rhythm in sinus after cardioversion * Continue anticoagulation * Plan for cardioversion Wednesday (2) Cardiomyopathy: Code(s): I42.9 - Cardiomyopathy, unspecified Status: Acute Assessment and Plan: EF 25-30%. This is a new diagnosis. Unclear if ischemic or nonischemic at this point - Possibly tachycardia-mediated. * He does not appear volume overloaded on exam. However, he did have trace pericardial effusions on chest x-ray. * Discontinue Lasix IV 20 mg b.i.d. and start Lasix 40 mg p.o. starting tomorrow * Discontinue metoprolol, Entresto given soft blood pressures. * Replenish magnesium * Will need LifeVest prior to discharge * Will need an ischemic evaluation at some point Subjective Date/time seen: 08/11/25 10:15 Interval history: Date of service 08/11-resting comfortably in bed. Remains with AFib with RVR heart rates 130. Blood pressure is soft. Exam Const: General: comfortable, no acute distress, alert and awake Orientatio n/consciousness: patient oriented x3 HENMT: Head: normal to inspection Eyes: General: appearance normal, both eyes and all related structures Pupils: Equal, round and reactive pupils present Neck: Neck: normal visual inspection, supple and no JVD Carotids: normal carotid upstroke Resp: Effort & Inspection: normal respiratory effort Auscultation: crackles Cardio: Rate: regular rate Rhythm: abnormal rhythm irregularly irregular Heart sounds: S1 normal heart sound present, S2 normal heart sound present and no murmurs GI: Auscultation: normal bowel sounds Skin: General skin exam: normal color Neuro: General: patient oriented x3 Cranial nerves: Yes Equal, round and reactive pupils present Extrem: General: normal to inspection Psych: Appearance: grossly normal Mental Status: mental status grossly normal Objective Data Vital Signs Vital Signs: Vital Signs - 24 hr 08/10/25 10:41 08/10/25 11:37 08/10/25 12:00 Temperature 36.3 C L Pulse Rate 122 H 95 95 Respiratory Rate 22 H Blood Pressure 104/62 114/94 H 114/94 H Pulse Oximetry 98 Oxygen Delivery 08/10/25 12:34 08/10/25 12:36 08/10/25 14:00 Temperature Pulse Rate 108 H 108 H Respiratory Rate Blood Pressure Pulse Oximetry Oxygen Delivery Room Air 08/10/25 15:36 08/10/25 16:00 08/10/25 16:00 Temperature 36.4 C Pulse Rate 107 H 108 H Respiratory Rate 20 Blood Pressure 109/74 Pulse Oximetry 95 Oxygen Delivery Room Air 08/10/25 18:00 08/10/25 18:23 08/10/25 20:00 Temperature 36.6 C Pulse Rate 117 H 122 H 120 H Respiratory Rate 16 Blood Pressure 114/70 Pulse Oximetry 99 Oxygen Delivery 08/10/25 20:00 08/10/25 20:00 08/10/25 21:16 Temperature Pulse Rate 115 H 112 H Respiratory Rate Blood Pressure Pulse Oximetry Oxygen Delivery Room Air 08/10/25 21:54 08/10/25 22:00 08/10/25 23:45 Temperature Pulse Rate 113 H Respiratory Rate Blood Pressure Pulse Oximetry 99 Oxygen Delivery Room Air Room Air 08/11/25 00:00 08/11/25 00:00 08/11/25 02:00 Temperature 36.6 C Pulse Rate 118 H 121 H 103 H Respiratory Rate 16 Blood Pressure 100/56 L Pulse Oximetry 99 Oxygen Delivery 08/11/25 03:51 08/11/25 04:00 08/11/25 04:00 Temperature 36.5 C Pulse Rate 125 H 132 H Respiratory Rate 15 Blood Pressure 108/76 Pulse Oximetry 95 Oxygen Delivery Room Air 08/11/25 06:00 08/11/25 07:39 08/11/25 08:00 Temperature 36.4 C Pulse Rate 118 H 122 H Respiratory Rate 22 H Blood Pressure 108/65 Pulse Oximetry 98 Oxygen Delivery Room Air 08/11/25 09:35 Temperature Pulse Rate 122 H Respiratory Rate Blood Pressure Pulse Oximetry Oxygen Delivery Intake/Output Intake/Output: Intake & Output 08/08/25 08/09/25 08/10/25 08/11/25 23:59 23:59 23:59 23:59 Intake Total 1055.8 1529.4 200 Output Total 2075 1100 Balance 1055.8 -545.6 -900 Meds/Results Medications: Active Medications Generic Name Dose Route Start Last Admin Trade Name Freq PRN Reason Stop Dose Admin Acetaminophen 650 mg 08/09/25 17:59 Acetaminophen 325 Mg Tablet PO Q4H PRN Mild Pain (1-3) or Fever Hydrocodone Bitart/Acetaminophen 1 tab 08/09/25 17:59 Hydrocodone/Acetaminophen (*Crx) 5-325 Mg Tablet PO Q4H PRN Pain Rated 4-6 Apixaban 5 mg 08/10/25 09:00 08/11/25 09:35 Apixaban 5 Mg Tablet PO 5 mg Q12HR MICAELA Administration Furosemide 20 mg 08/10/25 09:00 08/11/25 09:35 Furosemide Inj 40 Mg/4 Ml Vial IV PUSH 20 mg BID MICAELA Administration Levofloxacin/Dextrose 750 mg in 150 mls @ 100 mls/hr 08/10/25 08:00 08/11/25 09:35 Levaquin 750 Mg/D5w 150 Ml IVPB 100 mls/hr QAM MICAELA Administration Magnesium Sulfate 2 gm in 50 mls @ 25 mls/hr 08/11/25 10:10 Magnesium Sulf 2 Gm/Water 50ml IVPB 08/11/25 12:09 ONCE ONE Metoprolol Tartrate 25 mg 08/10/25 21:00 08/11/25 09:35 Metoprolol Tartrate 25 Mg Tablet PO 25 mg Q12HR MICAELA Administration Ondansetron HCl 4 mg 08/09/25 17:59 Ondansetron Inj 4 Mg/2 Ml Vial IV PUSH Q4H PRN Nausea Perflutren Lipid Microsphere 0 ml 08/09/25 19:55 Perflutren Lipid Microspheres 1.5 Ml Vial Diluted To 10 Ml Total Volume IV PUSH 08/12/25 19:56 ONCE PRN adequate visualization Protocol Sacubitril/Valsartan 1 tab 08/10/25 21:00 08/11/25 09:35 Sacubitril/Valsartan 12-13 Mg Tablet PO 1 tab Q12HR MICAELA Administration Radiology Results: ITS Impressions Chest X-Ray 08/09/25 15:27 IMPRESSION: Possible small right apical pneumothorax. Trace bibasilar effusions. Correlate with chest CT. Chest CT 08/09/25 15:51 IMPRESSION: 1. No pneumothorax. Large right apical air cyst formation with advanced emphysematous changes also present. Milder air cysts formation of the left apical region. 2. Small bilateral pleural effusions, and small pericardial effusion. Mild patchy groundglass opacification lung bases may represent mild edema versus developing pneumonitis. 3. Other chronic findings as above. Labs Labs: Laboratory Results - last 24 hr 08/09/25 08/10/25 08/10/25 22:02 03:35 09:49 WBC RBC Hgb Hct MCV MCH MCHC RDW Plt Count MPV Sodium Potassium Chloride Carbon Dioxide Anion Gap BUN Creatinine Estim Creat Clear Calc Estimated GFR Glucose Calcium Magnesium Total Bilirubin AST ALT Alkaline Phosphatase Total Protein Albumin Triglycerides 100 Cholesterol 182 LDL Cholesterol Direct 122 HDL Direct 36 Free T4 1.41 Total T3 1.16 Nasal MRSA (PCR) Not detected 08/11/25 08:27 WBC 7.6 RBC 5.06 Hgb 15.3 Hct 45.9 MCV 90.7 MCH 30.2 MCHC 33.3 RDW 13.1 Plt Count 238 MPV 11.7 H Sodium 135 L Potassium 3.9 Chloride 104 Carbon Dioxide 23 Anion Gap 8 BUN 17 Creatinine 1.15 Estim Creat Clear Calc 50 Estimated GFR > 60 Glucose 154 H Calcium 9.1 Magnesium 1.5 L Total Bilirubin 1.1 AST 22 ALT 19 Alkaline Phosphatase 66 Total Protein 6.5 Albumin 3.6 Triglycerides Cholesterol LDL Cholesterol Direct HDL Direct Free T4 Total T3 Nasal MRSA (PCR)
[2025-08-11] MEDS: POTASSIUM CHLORIDE 20 MEQ PACKET (FOR LIQUID) 40 MEQ PO (11:19)
[2025-08-11] MEDS: MAGNESIUM SULF 4 GM/WATER100ML 4 GM/100 ML BAG IVPB (11:21)
[2025-08-11] MEDS: MIDODRINE HCL 10 MG TABLET PO (12:24)
--- NOTE | 2025-08-11 12:24 | PCRCNOTE ---
PT HARD STICK DUE TO DELAYED ABG
[2025-08-11 12:35] LABS: Alveolar/Arterial O2 Gradient 147.2 mmHg; Fractional Inspired Oxygen 40 %; HCO3 ABG 18.3 mEq/l (22.0-26.0); Oxygen Content ABG 23.2 %vol (16.0-22.0); Oxygen Saturation ABG 98.5 % (95.0-100.0); PO2 ABG 111.2 mmHg (80.0-100.0); PO2 FiO2 Ratio Arterial Blood 2.78 %
[2025-08-11 12:37] LABS: Liters per Minute 5.0 LPM; Modified Allen's Test Pass; PCO2 ABG 23.3 mmHg (35.0-45.0); Site Drawn RIGHT RADIAL
[2025-08-11] MEDS: SODIUM CHLORIDE 0.9% IV 500 ML IV CONT (12:56)
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
--- NOTE | 2025-08-11 13:07 | ADMIMU ---
This patient, Anabel Gayle, was admitted to IMU status, and placed in Intensive Care Unit-6. Patient/family oriented to hospital policies and general routines including ID bracelet, bed and alarms, visiting hours, pain management, procedures, bathroom and other care routines, personal items, smoking policy, room service/diet, and visiting hours. Valuables list has been completed. TO ROOM 6 IN ICU @ 1238 Information on how to activate the Rapid Response Team has been discussed. Patient/Family are encouraged to report perceived risks to care and to ask questions if they do not understand what they are told or what they should do.
--- NOTE | 2025-08-11 13:32 | PM.IMPN2 ---
Assessment and Plan Assessment and Plan (1) Atrial fibrillation with RVR: Code(s): I48.91 - Unspecified atrial fibrillation Status: Acute Assessment and Plan: COntinue AMiodarone infusion per cardiology on Eliquis cardiology following, for COLETTE with DCCV if still (2) Hypotension: Code(s): I95.9 - Hypotension, unspecified Status: Acute Assessment and Plan: Episode of hypotension likely secondary to AFib with RVR. Patient is now on amiodarone for rate control. Patient is already getting 506 mL bolus of fluids May need Jaxon-Synephrine infusion but blood pressure already appears to be improving Monitor in ICU (3) Cardiomyopathy: Code(s): I42.9 - Cardiomyopathy, unspecified Status: Acute Assessment and Plan: 08/10 echo Summary 1. Complete two-dimensional, color flow and Doppler transthoracic echocardiogram is performed. 2. The left ventricle is moderately dilated with severely reduced systolic function. There is severe eccentric left ventricular hypertrophy. The left ventricular ejection fraction is visually estimated to be 25-30%. 3. The right ventricle is normal in size with mildly reduced systolic function. 4. The mitral valve leaflets are normal. There is posteriorly directed eccentric mitral regurgitation that is likely severe. Cardiology following Hold Entresto and beta-sivan due to low blood pressure Lasix also on hold Cautious IV fluid bolus (4) COPD (chronic obstructive pulmonary disease): Code(s): J44.9 - Chronic obstructive pulmonary disease, unspecified Status: Acute Assessment and Plan: History of COPD. Not in exacerbation Chest x-ray done on arrival to ICU shows no pneumothorax and hyperinflated lungs Chest CT on 08/09 1. No pneumothorax. Large right apical air cyst formation with advanced emphysematous changes also present. Milder air cysts formation of the left apical region. 2. Small bilateral pleural effusions, and small pericardial effusion. Mild patchy groundglass opacification lung bases may represent mild edema versus developing pneumonitis. 3. Other chronic findings as above. P.r.n. bronchodilators (5) Electrolyte abnormality: Code(s): E87.8 - Other disorders of electrolyte and fluid balance, not elsewhere classified Status: Acute Assessment and Plan: Patient received magnesium replaced Plan Afib RVR Continue Amiodarone infusion per cardiology, continue Eliiquis For COLETTE with cardioversion on Wednesday cardiology following Pneumonia CT Chest reviewed Blood culture, MRSA negative on Levaquin Cardiomyopathy ER showed EF 25-30% Continue Lasix Entresto and Metoprolol on hold due to Hypotension Lifevest on discharge Elevated troponin likely demand from Afib trend troponin Hypotension likely from Afib RVR receiving 500cc bolus 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 Except as documented in the HPI, all other systems were reviewed and are negative. Exam Narrative: General: Pt is alert awake and in NAD Lungs/Chest: Trachea central course breath sound No significant wheezing or crackle. Cardiac: Irregular rate and rhythm. Normal S1 S2. No murmurs Circulation: Pedal pulses are intact and symmetrical. Abdomen: Normal bowel sounds.. Soft. NT. ND. Extremities: No clubbing, cyanosis or edema. Warm : Weber in place Neurologic: Follows commands. Moves all 4 extremities PERRL AO x3 Skin: No Rash Const: Other: Thin body habitus, appears older than stated age, no acute distress HENMT: Other: Mucous membranes are moist, no oral pharyngeal erythema, dentures in upper and lower jaw Eyes: Other: No scleral icterus, bilateral lens implants noted, pupils are equal and reactive Neck: Other: Positive JVD, no lymphadenopathy Resp: Other: Accessory muscle use, tachypnea, crackles at the bases Cardio: Other: Irregularly irregular, tachycardic, 2+ bilateral radial and pedal pulses GI: Other: Soft, nontender, nondistended, positive bowel sounds Skin: Other: No jaundice, no pallor Neuro: Other: Alert orient x4, speech is clear, no facial asymmetry, no localizing neurologic deficits noted during the course of conversation Extrem: Other: 1+ pitting edema to the ankles bilaterally Psych: Other: The patient has markedly pressured speech, flight of thoughts, difficult to redirect, pleasant and cooperative Objective Data Vital Signs Vital Signs: Vital Signs - 24 hr 08/10/25 14:00 08/10/25 15:36 08/10/25 16:00 Temperature 97.6 F Pulse Rate 108 H 107 H Respiratory Rate 20 Blood Pressure 109/74 Pulse Oximetry 95 Oxygen Delivery Room Air 12/12/25 16:00 08/10/25 18:00 08/10/25 18:23 Temperature Pulse Rate 108 H 117 H 122 H Respiratory Rate Blood Pressure Pulse Oximetry Oxygen Delivery 08/10/25 20:00 08/10/25 20:00 08/10/25 20:00 Temperature 97.8 F Pulse Rate 120 H 115 H Respiratory Rate 16 Blood Pressure 114/70 Pulse Oximetry 99 Oxygen Delivery Room Air 08/10/25 21:16 08/10/25 21:54 08/10/25 22:00 Temperature Pulse Rate 112 H 113 H Respiratory Rate Blood Pressure Pulse Oximetry 99 Oxygen Delivery Room Air 08/10/25 23:45 08/11/25 00:00 08/11/25 00:00 Temperature 97.8 F Pulse Rate 118 H 121 H Respiratory Rate 16 Blood Pressure 100/56 L Pulse Oximetry 99 Oxygen Delivery Room Air 08/11/25 02:00 08/11/25 03:51 08/11/25 04:00 Temperature 97.7 F Pulse Rate 103 H 125 H Respiratory Rate 15 Blood Pressure 108/76 Pulse Oximetry 95 Oxygen Delivery Room Air 08/11/25 04:00 08/11/25 06:00 08/11/25 07:39 Temperature 97.6 F Pulse Rate 132 H 118 H 122 H Respiratory Rate 22 H Blood Pressure 108/65 Pulse Oximetry 98 Oxygen Delivery 08/11/25 08:00 08/11/25 09:35 08/11/25 11:34 Temperature 97.5 F L Pulse Rate 122 H 121 H Respiratory Rate 24 H Blood Pressure 91/52 L Pulse Oximetry 100 Oxygen Delivery Room Air 08/11/25 12:05 08/11/25 12:12 08/11/25 12:30 Temperature Pulse Rate 123 H 132 H 110 H Respiratory Rate Blood Pressure 94/61 L 94/61 L 64/39 L Pulse Oximetry Oxygen Delivery 08/11/25 13:00 Temperature Pulse Rate 98 Respiratory Rate 25 H Blood Pressure Pulse Oximetry 98 Oxygen Delivery Intake/Output Intake/Output: Intake & Output 08/08/25 08/09/25 08/10/25 08/11/25 23:59 23:59 23:59 23:59 Intake Total 1055.8 1529.4 570 Output Total 2075 1400 Balance 1055.8 -545.6 -830 Meds/Results Medications: Active Medications Generic Name Dose Route Start Last Admin Trade Name Juanq PRN Reason Stop Dose Admin Magnesium Sulfate 4 gm in 100 mls @ 25 mls/hr 08/11/25 10:30 08/11/25 11:21 Magnesium Sulf 4 Gm/[id number] IVPB 08/11/25 14:29 25 mls/hr ONCE ONE Administration Radiology Results: ITS Impressions Chest CT 08/09/25 15:51 IMPRESSION: 1. No pneumothorax. Large right apical air cyst formation with advanced emphysematous changes also present. Milder air cysts formation of the left apical region. 2. Small bilateral pleural effusions, and small pericardial effusion. Mild patchy groundglass opacification lung bases may represent mild edema versus developing pneumonitis. 3. Other chronic findings as above. Labs Labs: Laboratory Results - last 24 hr 08/09/25 08/10/25 08/11/25 22:02 03:35 08:27 WBC 7.6 RBC 5.06 Hgb 15.3 Hct 45.9 MCV 90.7 MCH 30.2 MCHC 33.3 RDW 13.1 Plt Count 238 MPV 11.7 H Puncture Site ABG pH ABG pCO2 ABG pO2 ABG PO2/FiO2 Ratio ABG HCO3 ABG O2 Saturation ABG O2 Content ABG Base Excess A-a Gradient Oxyhemoglobin Total Hemoglobin O2 Delivery Device O2 Liters/Min FiO2 Sodium 135 L Potassium 3.9 Chloride 104 Carbon Dioxide 23 Anion Gap 8 BUN 17 Creatinine 1.15 Estim Creat Clear Calc 50 Estimated GFR > 60 Glucose 154 H POC Capillary Glucose Calcium 9.1 Magnesium 1.5 L Total Bilirubin 1.1 AST 22 ALT 19 Alkaline Phosphatase 66 Total Protein 6.5 Albumin 3.6 Triglycerides 100 Cholesterol 182 LDL Cholesterol Direct 122 HDL Direct 36 Free T4 1.41 Total T3 1.16 08/11/25 08/11/25 11:49 12:10 WBC RBC Hgb Hct MCV MCH MCHC RDW Plt Count MPV Puncture Site Right radial ABG pH 7.514 H* ABG pCO2 23.3 L* ABG pO2 111.2 H ABG PO2/FiO2 Ratio 2.78 ABG HCO3 18.3 L ABG O2 Saturation 98.5 ABG O2 Content 23.2 H ABG Base Excess -2.2 A-a Gradient 147.2 Oxyhemoglobin 98.3 Total Hemoglobin 16.7 O2 Delivery Device Nasal cannula O2 Liters/Min 5.0 FiO2 40 Sodium Potassium Chloride Carbon Dioxide Anion Gap BUN Creatinine Estim Creat Clear Calc Estimated GFR Glucose POC Capillary Glucose 145 H Calcium Magnesium Total Bilirubin AST ALT Alkaline Phosphatase Total Protein Albumin Triglycerides Cholesterol LDL Cholesterol Direct HDL Direct Free T4 Total T3 Quality VTE Prophylaxis VTE prophylaxis: pharmacologic ordered (Lovenox 1 milligram/kilogram followed by initiation of Eliquis)
[2025-08-11] MEDS: PHENYLEPHRINE HCL INJ 50 MG in SODIUM CHLORIDE 0.9% IV 245 ML 12 ML IV CONT (14:15)
[2025-08-11] MEDS: LIDOCAINE 1% PF INJ 5 ML VIAL INFILTRATE (14:30)
[2025-08-11] MEDS: CENTRAL LINE FLUSH 10 ML IV PUSH (23:11)
[2025-08-12] VITALS (28 sets, daily range): BP systolic 78–121; BP diastolic 52–85; PULSE 90–134; RESP 15–97; TEMP 36.3–37.1; O2SAT 13–100
[2025-08-12] MEDS: CENTRAL LINE FLUSH 10 ML IV PUSH ×3 (05:58→19:58)
[2025-08-12 06:03] LABS: Hematocrit 45.6 % (42.0-52.0); Hemoglobin 15.1 g/dL (14.0-18.0); Mean Corpuscular HGB Conc 33.1 g/dl (32-36); Mean Corpuscular Hemoglobin 30.4 pg (26-34); Mean Corpuscular Volume 91.8 fl (80-100); Platelet Count Result 228 k/mm3 (150-375); Red Blood Count 4.97 M/mm3 (4.6-6.20); White Blood Count 8.3 K/mm3 (4.5-10.0)
[2025-08-12 06:28] LABS: Alanine Aminotransferase 20 U/L (6-50); Albumin Level 3.5 g/dL (3.5-5.1); Alkaline Phosphatase 65 U/L (38-126); Anion Gap 5 mmol/L (4-12); Aspartate Amino Transferase 27 U/L (17-59); Bilirubin,Total 0.5 mg/dL (0.2-1.3); Blood Urea Nitrogen 22 mg/dL (9-20); Calcium 8.8 mg/dL (8.4-10.2); Carbon Dioxide 24 mmol/L (22-30); Chloride 105 mmol/L (98-107); Estimated CRCL calculation 46 ml/min; Estimated Glomerular Filt Rate 58; Glucose 102 mg/dL (65-110); Magnesium 2.2 mg/dL (1.6-2.3); Potassium 4.1 mmol/L (3.4-5.0); Sodium 134 mmol/L (137-145); Total Protein 6.4 g/dL (6.3-8.2)
[2025-08-12 06:44] LABS: Anisocytosis 1+; Band Neutrophils Percent 2 % (0-6); Lymphocytes Absolute Manual 1.99 K/mm3 (1.1-4.5); Lymphocytes Percent Manual 24 % (18-44); Monocytes Absolute Manual 0.49 K/mm3 (0.1-0.90); Monocytes Percent Manual 6 % (3-9); Neutrophils Absolute Manual 5.81 K/mm3 (1.3-6.7); Neutrophils Percent Manual 68 % (46-73); Total Cells Counted 100
[2025-08-12 06:45] LABS: Burr Cells 1+; Schistocytes None Seen
--- NOTE | 2025-08-12 08:43 | P.PNINT_ITS ---
Assessment and Plan Assessment and Plan (1) Atrial fibrillation with RVR: Code(s): I48.91 - Unspecified atrial fibrillation Status: Acute Assessment and Plan: Currently on amiodarone infusion. Also on Eliquis Will give additional bolus of amiodarone Discussed with Cardiology. Plan for DC cardioversion tomorrow (2) Hypotension: Code(s): I95.9 - Hypotension, unspecified Status: Acute Assessment and Plan: Episode of hypotension likely secondary to AFib with RVR. Patient is now on amiodarone for rate control. Patient was given cautious IVF bolus of fluids He was on Jaxon-Synephrine infusion but currently off. Use as needed Monitor in ICU (3) Cardiomyopathy: Code(s): I42.9 - Cardiomyopathy, unspecified Status: Acute Assessment and Plan: 08/10 echo Summary 1. Complete two-dimensional, color flow and Doppler transthoracic echocardiogram is performed. 2. The left ventricle is moderately dilated with severely reduced systolic function. There is severe eccentric left ventricular hypertrophy. The left ventricular ejection fraction is visually estimated to be 25-30%. 3. The right ventricle is normal in size with mildly reduced systolic function. 4. The mitral valve leaflets are normal. There is posteriorly directed eccentric mitral regurgitation that is likely severe. Cardiology following Hold Entresto and beta-sivan due to low blood pressure Lasix also on hold (4) COPD (chronic obstructive pulmonary disease): Code(s): J44.9 - Chronic obstructive pulmonary disease, unspecified Status: Acute Assessment and Plan: History of COPD. Not in exacerbation Chest x-ray done on arrival to ICU shows no pneumothorax and hyperinflated lungs Chest CT on 08/09 1. No pneumothorax. Large right apical air cyst formation with advanced emphysematous changes also present. Milder air cysts formation of the left apical region. 2. Small bilateral pleural effusions, and small pericardial effusion. Mild patchy groundglass opacification lung bases may represent mild edema versus developing pneumonitis. 3. Other chronic findings as above. P.r.n. bronchodilators (5) Electrolyte abnormality: Code(s): E87.8 - Other disorders of electrolyte and fluid balance, not elsewhere classified Status: Acute Assessment and Plan: Patient received magnesium replaced Plan DVT prophylaxis -Eliquis Nutrition -heart healthy diet Code Status - Full Code Total Critical Care Time - 30 minutes Due to a high probability of clinically significant, life threatening deterioration, the patient required my highest level of preparedness to inter vene emergently and I personally spent this critical care time directly and personally managing the patient. This critical care time included obtaining a history; examining the patient; pulse oximetry; ordering and review of studies; arranging urgent treatment with development of a management plan; evaluation of patient's response to treatment; frequent reassessment; and discussions with other providers. It was exclusive of separately billable procedures and treating other patients and teaching time. Please see Assessment and Plan section and the rest of the note for further information on patient assessment and treatment Subjective Date/time seen: 08/12/25 overnight events reviewed. Patient continues to be in AFib with RVR. Patient has been weaned off of Jaxon-Synephrine infusion. He is on 2 L nasal cannula. He is tolerating p.o. diet. All other systems were reviewed and were negative. Review of Systems Review of Systems: All systems reviewed & are unremarkable except as noted in HPI and below (HPI) Exam Narrative: General: Pt is alert awake and in NAD Lungs/Chest: Trachea central course breath sound No significant wheezing or crackle. Cardiac: Irregular rate and rhythm. Normal S1 S2. No murmurs Circulation: Pedal pulses are intact and symmetrical. Abdomen: Normal bowel sounds.. Soft. NT. ND. Extremities: No clubbing, cyanosis or edema. Warm : Weber in place Neurologic: Follows commands. Moves all 4 extremities PERRL AO x3 Skin: No Rash Objective Data Vital Signs Vital Signs: Vital Signs - 24 hr 08/11/25 09:35 08/11/25 10:00 08/11/25 11:30 Temperature Pulse Rate 122 H 132 H Respiratory Rate Blood Pressure Pulse Oximetry 99 Oxygen Delivery Nasal Cannula Oxygen Flow Rate 5 08/11/25 11:34 08/11/25 12:00 08/11/25 12:05 Temperature 36.4 C L Pulse Rate 121 H 133 H 123 H Respiratory Rate 24 H Blood Pressure 91/52 L 94/61 L Pulse Oximetry 100 Oxygen Delivery Oxygen Flow Rate 08/11/25 12:12 08/11/25 12:30 08/11/25 12:45 Temperature Pulse Rate 132 H 110 H 105 H Respiratory Rate Blood Pressure 94/61 L 64/39 L Pulse Oximetry Oxygen Delivery Oxygen Flow Rate 08/11/25 12:45 08/11/25 13:00 08/11/25 14:00 Temperature Pulse Rate 98 116 H Respiratory Rate 25 H Blood Pressure Pulse Oximetry 94 98 Oxygen Delivery Nasal Cannula Oxygen Flow Rate 5 08/11/25 14:00 08/11/25 14:14 08/11/25 14:15 Temperature Pulse Rate 109 H 116 H 116 H Respiratory Rate 25 H Blood Pressure 76/58 L 76/58 L Pulse Oximetry 96 Oxygen Delivery Oxygen Flow Rate 08/11/25 15:00 08/11/25 16:00 08/11/25 16:00 Temperature Pulse Rate 112 H 121 H Respiratory Rate 20 Blood Pressure 114/93 H Pulse Oximetry 97 97 Oxygen Delivery Room Air Oxygen Flow Rate 08/11/25 16:00 08/11/25 16:00 08/11/25 16:00 Temperature Pulse Rate 121 H 106 H 105 H Respiratory Rate 20 Blood Pressure 107/51 L 104/89 104/89 Pulse Oximetry 98 Oxygen Delivery Oxygen Flow Rate 08/11/25 17:00 08/11/25 18:00 08/11/25 18:00 Temperature Pulse Rate 120 H 107 H 107 H Respiratory Rate 18 Blood Pressure 100/74 106/78 107/63 Pulse Oximetry 98 Oxygen Delivery Oxygen Flow Rate 08/11/25 18:00 08/11/25 18:00 08/11/25 19:00 Temperature Pulse Rate 120 H 116 H 108 H Respiratory Rate 18 16 Blood Pressure Pulse Oximetry 98 98 Oxygen Delivery Oxygen Flow Rate 08/11/25 20:00 08/11/25 20:00 08/11/25 20:00 Temperature 36.5 C Pulse Rate 113 H 122 H Respiratory Rate 14 Blood Pressure 104/58 L Pulse Oximetry 98 Oxygen Delivery Room Air Oxygen Flow Rate 08/11/25 20:00 08/11/25 20:11 08/11/25 21:00 Temperature Pulse Rate 115 H 114 H 107 H Respiratory Rate 17 Blood Pressure 105/83 105/83 111/84 Pulse Oximetry 99 Oxygen Delivery Oxygen Flow Rate 08/11/25 22:00 08/11/25 22:00 08/11/25 22:00 Temperature Pulse Rate 122 H 122 H 122 H Respiratory Rate 23 H Blood Pressure 108/87 108/87 Pulse Oximetry 92 Oxygen Delivery Oxygen Flow Rate 08/11/25 23:00 08/11/25 23:17 08/12/25 00:00 Temperature Pulse Rate 116 H 96 Respiratory Rate 24 H Blood Pressure 112/94 H 112/94 H Pulse Oximetry 100 Oxygen Delivery Room Air Oxygen Flow Rate 08/12/25 00:00 08/12/25 00:00 08/12/25 00:00 Temperature 36.4 C Pulse Rate 125 H 109 H 109 H Respiratory Rate 19 Blood Pressure 109/76 109/76 Pulse Oximetry 98 Oxygen Delivery Oxygen Flow Rate 08/12/25 01:00 08/12/25 02:00 08/12/25 02:30 Temperature Pulse Rate 111 H 118 H 118 H Respiratory Rate 24 H 27 H Blood Pressure 82/65 L 96/77 L Pulse Oximetry 99 100 Oxygen Delivery Oxygen Flow Rate 08/12/25 03:00 08/12/25 04:00 08/12/25 04:00 Temperature Pulse Rate 104 H 134 H Respiratory Rate 30 H Blood Pressure 102/85 Pulse Oximetry 98 Oxygen Delivery Room Air Oxygen Flow Rate 08/12/25 04:00 08/12/25 05:00 08/12/25 06:00 Temperature Pulse Rate 119 H 124 H 105 H Respiratory Rate 22 H 20 Blood Pressure 116/70 101/75 Pulse Oximetry 100 99 Oxygen Delivery Oxygen Flow Rate 08/12/25 07:00 08/12/25 07:46 08/12/25 07:46 Temperature Pulse Rate 110 H 117 H 117 H Respiratory Rate 20 Blood Pressure 96/65 L 93/76 L 93/76 L Pulse Oximetry 100 Oxygen Delivery Oxygen Flow Rate 08/12/25 08:00 08/12/25 08:00 08/12/25 08:00 Temperature 36.9 C Pulse Rate 112 H 112 H 112 H Respiratory Rate 22 H 22 H Blood Pressure 82/54 L Pulse Oximetry 97 97 Oxygen Delivery Room Air Oxygen Flow Rate Intake/Output Intake/Output: Intake & Output 08/09/25 08/10/25 08/11/25 08/12/25 23:59 23:59 23:59 23:59 Intake Total 1055.8 1529.4 1284.0 196.3 Output Total 2075 1650 400 Balance 1055.8 -545.6 -366.0 -203.7 Meds/Results Medications: Active Medications Generic Name Dose Route Start Last Admin Trade Name Freq PRN Reason Stop Dose Admin Acetaminophen 650 mg 08/11/25 14:07 Acetaminophen 325 Mg Tablet PO Q4H PRN Headache, Fever or Mild Pain Hydrocodone Bitart/Acetaminophen 1 tab 08/11/25 14:07 Hydrocodone/Acetaminophen (*Crx) 5-325 Mg Tablet PO Q4H PRN Pain Rated 4-6 Albuterol/Ipratropium 3 ml 08/11/25 14:06 Ipratropium 0.5 Mg/Albuterol Sulfate 2.5 Mg (Base) Ampul.Neb 3 Ml INHALATION Q6HRT PRN Wheezing Apixaban 5 mg 08/11/25 21:00 08/11/25 20:10 Apixaban 5 Mg Tablet PO 5 mg Q12HR MICAELA Administration Phenylephrine HCl 50 mg/ 250 mls @ 0 mls/hr 08/11/25 14:10 08/12/25 00:00 Sodium Chloride IV CONT 0 mcg/min .Q0M MICAELA 0 mls/hr Protocol Titration 0 MCG/MIN Amiodarone HCl/Dextrose 360 mg in 200 mls @ 16.667 mls/hr 08/11/25 20:00 08/12/25 07:46 Nexterone 360 Mg/D5w 200 Ml IV CONT 0.5 mg/min .Q12H MICAELA 16.67 mls/hr 0.5 MG/MIN Administration Sodium Chloride 10 ml 08/11/25 22:00 08/12/25 05:58 Central Line Flush IV PUSH 10 ml Q8HR MICAELA Administration Sodium Chloride 10 ml 08/11/25 15:32 Central Line Flush IV PUSH PRN PRN with TPN bag changes Sodium Chloride 20 ml 08/11/25 15:32 Central Line Flush IV PUSH PRN PRN after blood draws Radiology Results: ITS Impressions Chest CT 08/09/25 15:51 IMPRESSION: 1. No pneumothorax. Large right apical air cyst formation with advanced emphysematous changes also present. Milder air cysts formation of the left apical region. 2. Small bilateral pleural effusions, and small pericardial effusion. Mild patchy groundglass opacification lung bases may represent mild edema versus developing pneumonitis. 3. Other chronic findings as above. Chest X-Ray 08/11/25 15:41 Impression: No acute cardiopulmonary abnormality. Labs Labs: Laboratory Results - last 24 hr 08/11/25 08/11/25 08/11/25 08:27 11:49 12:10 WBC RBC Hgb Hct MCV MCH MCHC RDW Plt Count MPV Immature Gran % (Auto) Neut % (Auto) Lymph % (Auto) Dewitt % (Auto) Eos % (Auto) Baso % (Auto) Lymph # (Auto) Dewitt # (Auto) Eos # (Auto) Baso # (Auto) Abs Immat Gran (auto) Absolute Neuts (auto) Absolute Nucleated RBC Total Counted Neutrophils % (Manual) Band Neutrophils % Lymphocytes % (Manual) Monocytes % (Manual) Nucleated RBC % Abs Neuts (Manual) Abs Lymphs (Manual) Abs Monocytes (Manual) Platelet Estimate Anisocytosis Layne Cells Schistocytes Puncture Site Right radial ABG pH 7.514 H* ABG pCO2 23.3 L* ABG pO2 111.2 H ABG PO2/FiO2 Ratio 2.78 ABG HCO3 18.3 L ABG O2 Saturation 98.5 ABG O2 Content 23.2 H ABG Base Excess -2.2 A-a Gradient 147.2 Oxyhemoglobin 98.3 Total Hemoglobin 16.7 O2 Delivery Device Nasal cannula O2 Liters/Min 5.0 FiO2 40 Sodium 135 L Potassium 3.9 Chloride 104 Carbon Dioxide 23 Anion Gap 8 BUN 17 Creatinine 1.15 Estim Creat Clear Calc 50 Estimated GFR > 60 Glucose 154 H POC Capillary Glucose 145 H Calcium 9.1 Magnesium 1.5 L Total Bilirubin 1.1 AST 22 ALT 19 Alkaline Phosphatase 66 Total Protein 6.5 Albumin 3.6 08/12/25 05:50 WBC 8.3 RBC 4.97 Hgb 15.1 Hct 45.6 MCV 91.8 MCH 30.4 MCHC 33.1 RDW 13.2 Plt Count 228 MPV 11.6 H Immature Gran % (Auto) Not Reportable Neut % (Auto) Not Reportable Lymph % (Auto) Not Reportable Dewitt % (Auto) Not Reportable Eos % (Auto) Not Reportable Baso % (Auto) Not Reportable Lymph # (Auto) Not Reportable Dewitt # (Auto) Not Reportable Eos # (Auto) Not Reportable Baso # (Auto) Not Reportable Abs Immat Gran (auto) Not Reportable Absolute Neuts (auto) Not Reportable Absolute Nucleated RBC Not Reportable Total Counted 100 Neutrophils % (Manual) 68 Band Neutrophils % 2 Lymphocytes % (Manual) 24 Monocytes % (Manual) 6 Nucleated RBC % Not Reportable Abs Neuts (Manual) 5.81 Abs Lymphs (Manual) 1.99 Abs Monocytes (Manual) 0.49 Platelet Estimate Adequate Anisocytosis 1+ Layne Cells 1+ Schistocytes None seen Puncture Site ABG pH ABG pCO2 ABG pO2 ABG PO2/FiO2 Ratio ABG HCO3 ABG O2 Saturation ABG O2 Content ABG Base Excess A-a Gradient Oxyhemoglobin Total Hemoglobin O2 Delivery Device O2 Liters/Min FiO2 Sodium 134 L Potassium 4.1 Chloride 105 Carbon Dioxide 24 Anion Gap 5 BUN 22 H Creatinine 1.26 Estim Creat Clear Calc 46 Estimated GFR 58 L Glucose 102 POC Capillary Glucose Calcium 8.8 Magnesium 2.2 Total Bilirubin 0.5 AST 27 ALT 20 Alkaline Phosphatase 65 Total Protein 6.4 Albumin 3.5 Quality VTE Prophylaxis VTE prophylaxis: pharmacologic ordered (Lovenox 1 milligram/kilogram followed by initiation of Eliquis)
--- NOTE | 2025-08-12 08:59 | P.PNCA_ITS ---
Progress Note: A&P Assessment and Plan (1) Atrial fibrillation with RVR: Code(s): I48.91 - Unspecified atrial fibrillation Status: Acute Assessment and Plan: Presents with atrial fibrillation with rapid ventricular response. This is a new diagnosis. I discussed the diagnosis of atrial fibrillation with her including the pathophysiology, management strategies, and complications/risks of atrial fibrillation. Given that he also has severe cardiomyopathy with an EF of 25-30%, I think getting him back into sinus rhythm be the best strategy. However, unfortunately he has already eaten today therefore cannot proceed with COLETTE/cardioversion. Will plan for this on Wednesday. In the meantime will control his heart rate. * Continue IV amiodarone. Heart rates remain elevated despite amiodarone. Plan for cardioversion tomorrow. Keep NPO after midnight * Continue anticoagulation with Eliquis. * Plan for cardioversion Wednesday (2) Cardiomyopathy: Code(s): I42.9 - Cardiomyopathy, unspecified Status: Acute Assessment and Plan: EF 25-30%. This is a new diagnosis. Unclear if ischemic or nonischemic at this point - Possibly tachycardia-mediated. * At this time Lasix was discontinued due to drop in blood pressure. * Administer Lasix only as needed * Eventually will need ischemic evaluation. * Introduce heart failure medicine gradually when able to tolerate. -in regards to hypotension, continue midodrine. Subjective Date/time seen: Date of service 08/12/25 08:59 Interval history: Date of service 08/11-resting comfortably in bed. Remains with AFib with RVR heart rates 130. Blood pressure is soft. Date of service 08/12/2025: Patient was transferred to ICU yesterday evening because of AFib with RVR and drop in blood pressure. Yesterday was started on amiodarone IV bolus and drip. He remains tachycardic despite the amiodarone Exam Const: General: comfortable, no acute distress, alert and awake Orientation/consciousness: patient oriented x3 HENMT: Head: normal to inspection Eyes: General: appearance normal, both eyes and all related structures Pupils: Equal, round and reactive pupils present Neck: Neck: normal visual inspection, supple and no JVD Carotids: normal carotid upstroke Resp: Effort & Inspection: normal respiratory effort Auscultation: crackles Cardio: Rate: regular rate Rhythm: abnormal rhythm irregularly irregular Heart sounds: S1 normal heart sound present, S2 normal heart sound present and no murmurs GI: Auscultation: normal bowel sounds Skin: General skin exam: normal color Neuro: General: patient oriented x3 Cranial nerves: Yes Equal, round and reactive pupils present Extrem: General: normal to inspection Psych: Appearance: grossly normal Mental Status: mental status grossly normal Objective Data Vital Signs Vital Signs: Vital Signs - 24 hr 08/11/25 09:35 08/11/25 10:00 08/11/25 11:30 Temperature Pulse Rate 122 H 132 H Respiratory Rate Blood Pressure Pulse Oximetry 99 Oxygen Delivery Nasal Cannula Oxygen Flow Rate 5 08/11/25 11:34 08/11/25 12:00 08/11/25 12:05 Temperature 36.4 C L Pulse Rate 121 H 133 H 123 H Respiratory Rate 24 H Blood Pressure 91/52 L 94/61 L Pulse Oximetry 100 Oxygen Delivery Oxygen Flow Rate 08/11/25 12:12 08/11/25 12:30 08/11/25 12:45 Temperature Pulse Rate 132 H 110 H 105 H Respiratory Rate Blood Pressure 94/61 L 64/39 L Pulse Oximetry Oxygen Delivery Oxygen Flow Rate 08/11/25 12:45 08/11/25 13:00 08/11/25 14:00 Temperature Pulse Rate 98 116 H Respiratory Rate 25 H Blood Pressure Pulse Oximetry 94 98 Oxygen Delivery Nasal Cannula Oxygen Flow Rate 5 08/11/25 14:00 08/11/25 14:14 08/11/25 14:15 Temperature Pulse Rate 109 H 116 H 116 H Respiratory Rate 25 H Blood Pressure 76/58 L 76/58 L Pulse Oximetry 96 Oxygen Delivery Oxygen Flow Rate 08/11/25 15:00 08/11/25 16:00 08/11/25 16:00 Temperature Pulse Rate 112 H 121 H Respiratory Rate 20 Blood Pressure 114/93 H Pulse Oximetry 97 97 Oxygen Delivery Room Air Oxygen Flow Rate 08/11/25 16:00 08/11/25 16:00 08/11/25 16:00 Temperature Pulse Rate 121 H 106 H 105 H Respiratory Rate 20 Blood Pressure 107/51 L 104/89 104/89 Pulse Oximetry 98 Oxygen Delivery Oxygen Flow Rate 08/11/25 17:00 08/11/25 18:00 08/11/25 18:00 Temperature Pulse Rate 120 H 107 H 107 H Respiratory Rate 18 Blood Pressure 100/74 106/78 107/63 Pulse Oximetry 98 Oxygen Delivery Oxygen Flow Rate 08/11/25 18:00 08/11/25 18:00 08/11/25 19:00 Temperature Pulse Rate 120 H 116 H 108 H Respiratory Rate 18 16 Blood Pressure Pulse Oximetry 98 98 Oxygen Delivery Oxygen Flow Rate 08/11/25 20:00 08/11/25 20:00 08/11/25 20:00 Temperature 36.5 C Pulse Rate 113 H 122 H Respiratory Rate 14 Blood Pressure 104/58 L Pulse Oximetry 98 Oxygen Delivery Room Air Oxygen Flow Rate 08/11/25 20:00 08/11/25 20:11 08/11/25 21:00 Temperature Pulse Rate 115 H 114 H 107 H Respiratory Rate 17 Blood Pressure 105/83 105/83 111/84 Pulse Oximetry 99 Oxygen Delivery Oxygen Flow Rate 08/11/25 22:00 08/11/25 22:00 08/11/25 22:00 Temperature Pulse Rate 122 H 122 H 122 H Respiratory Rate 23 H Blood Pressure 108/87 108/87 Pulse Oximetry 92 Oxygen Delivery Oxygen Flow Rate 08/11/25 23:00 08/11/25 23:17 08/12/25 00:00 Temperature Pulse Rate 116 H 96 Respiratory Rate 24 H Blood Pressure 112/94 H 112/94 H Pulse Oximetry 100 Oxygen Delivery Room Air Oxygen Flow Rate 08/12/25 00:00 08/12/25 00:00 08/12/25 00:00 Temperature 36.4 C Pulse Rate 125 H 109 H 109 H Respiratory Rate 19 Blood Pressure 109/76 109/76 Pulse Oximetry 98 Oxygen Delivery Oxygen Flow Rate 08/12/25 01:00 08/12/25 02:00 08/12/25 02:30 Temperature Pulse Rate 111 H 118 H 118 H Respiratory Rate 24 H 27 H Blood Pressure 82/65 L 96/77 L Pulse Oximetry 99 100 Oxygen Delivery Oxygen Flow Rate 08/12/25 03:00 08/12/25 04:00 08/12/25 04:00 Temperature Pulse Rate 104 H 134 H Respiratory Rate 30 H Blood Pressure 102/85 Pulse Oximetry 98 Oxygen Delivery Room Air Oxygen Flow Rate 08/12/25 04:00 08/12/25 05:00 08/12/25 06:00 Temperature Pulse Rate 119 H 124 H 105 H Respiratory Rate 22 H 20 Blood Pressure 116/70 101/75 Pulse Oximetry 100 99 Oxygen Delivery Oxygen Flow Rate 08/12/25 07:00 08/12/25 07:46 08/12/25 07:46 Temperature Pulse Rate 110 H 117 H 117 H Respiratory Rate 20 Blood Pressure 96/65 L 93/76 L 93/76 L Pulse Oximetry 100 Oxygen Delivery Oxygen Flow Rate 08/12/25 08:00 08/12/25 08:00 08/12/25 08:00 Temperature 36.9 C Pulse Rate 112 H 112 H 112 H Respiratory Rate 22 H 22 H Blood Pressure 82/54 L Pulse Oximetry 97 97 Oxygen Delivery Room Air Oxygen Flow Rate Intake/Output Intake/Output: Intake & Output 08/09/25 08/10/25 08/11/25 08/12/25 23:59 23:59 23:59 23:59 Intake Total 1055.8 1529.4 1284.0 196.3 Output Total 2075 1650 400 Balance 1055.8 -545.6 -366.0 -203.7 Meds/Results Medications: Active Medications Generic Name Dose Route Start Last Admin Trade Name Freq PRN Reason Stop Dose Admin Acetaminophen 650 mg 08/11/25 14:07 Acetaminophen 325 Mg Tablet PO Q4H PRN Headache, Fever or Mild Pain Hydrocodone Bitart/Acetaminophen 1 tab 08/11/25 14:07 Hydrocodone/Acetaminophen (*Crx) 5-325 Mg Tablet PO Q4H PRN Pain Rated 4-6 Albuterol/Ipratropium 3 ml 08/11/25 14:06 Ipratropium 0.5 Mg/Albuterol Sulfate 2.5 Mg (Base) Ampul.Neb 3 Ml INHALATION Q6HRT PRN Wheezing Apixaban 5 mg 08/11/25 21:00 08/11/25 20:10 Apixaban 5 Mg Tablet PO 5 mg Q12HR MICAELA Administration Phenylephrine HCl 50 mg/ 250 mls @ 0 mls/hr 08/11/25 14:10 08/12/25 00:00 Sodium Chloride IV CONT 0 mcg/min .Q0M MICAELA 0 mls/hr Protocol Titration 0 MCG/MIN Amiodarone HCl/Dextrose 360 mg in 200 mls @ 16.667 mls/hr 08/11/25 20:00 08/12/25 07:46 Nexterone 360 Mg/D5w 200 Ml IV CONT 0.5 mg/min .Q12H MICAELA 16.67 mls/hr 0.5 MG/MIN Administration Midodrine 10 mg 08/12/25 09:00 Midodrine Hcl 10 Mg Tablet PO TID MICAELA Sodium Chloride 10 ml 08/11/25 22:00 08/12/25 05:58 Central Line Flush IV PUSH 10 ml Q8HR MICAELA Administration Sodium Chloride 10 ml 08/11/25 15:32 Central Line Flush IV PUSH PRN PRN with TPN bag changes Sodium Chloride 20 ml 08/11/25 15:32 Central Line Flush IV PUSH PRN PRN after blood draws Radiology Results: ITS Impressions Chest CT 08/09/25 15:51 IMPRESSION: 1. No pneumothorax. Large right apical air cyst formation with advanced emphysematous changes also present. Milder air cysts formation of the left apical region. 2. Small bilateral pleural effusions, and small pericardial effusion. Mild patchy groundglass opacification lung bases may represent mild edema versus developing pneumonitis. 3. Other chronic findings as above. Chest X-Ray 08/11/25 15:41 Impression: No acute cardiopulmonary abnormality. Labs Labs: Laboratory Results - last 24 hr 08/11/25 08/11/25 08/12/25 11:49 12:10 05:50 WBC 8.3 RBC 4.97 Hgb 15.1 Hct 45.6 MCV 91.8 MCH 30.4 MCHC 33.1 RDW 13.2 Plt Count 228 MPV 11.6 H Immature Gran % (Auto) Not Reportable Neut % (Auto) Not Reportable Lymph % (Auto) Not Reportable [place] % (Auto) Not Reportable Eos % (Auto) Not Reportable Baso % (Auto) Not Reportable Lymph # (Auto) Not Reportable [place] # (Auto) Not Reportable Eos # (Auto) Not Reportable Baso # (Auto) Not Reportable Abs Immat Gran (auto) Not Reportable Absolute Neuts (auto) Not Reportable Absolute Nucleated RBC Not Reportable Total Counted 100 Neutrophils % (Manual) 68 Band Neutrophils % 2 Lymphocytes % (Manual) 24 Monocytes % (Manual) 6 Nucleated RBC % Not Reportable Abs Neuts (Manual) 5.81 Abs Lymphs (Manual) 1.99 Abs Monocytes (Manual) 0.49 Platelet Estimate Adequate Anisocytosis 1+ [place] Cells 1+ Schistocytes None seen Puncture Site Right radial ABG pH 7.514 H* ABG pCO2 23.3 L* ABG pO2 111.2 H ABG PO2/FiO2 Ratio 2.78 ABG HCO3 18.3 L ABG O2 Saturation 98.5 ABG O2 Content 23.2 H ABG Base Excess -2.2 A-a Gradient 147.2 Oxyhemoglobin 98.3 Total Hemoglobin 16.7 O2 Delivery Device Nasal cannula O2 Liters/Min 5.0 FiO2 40 Sodium 134 L Potassium 4.1 Chloride 105 Carbon Dioxide 24 Anion Gap 5 BUN 22 H Creatinine 1.26 Estim Creat Clear Calc 46 Estimated GFR 58 L Glucose 102 POC Capillary Glucose 145 H Calcium 8.8 Magnesium 2.2 Total Bilirubin 0.5 AST 27 ALT 20 Alkaline Phosphatase 65 Total Protein 6.4 Albumin 3.5
[2025-08-12] MEDS: APIXABAN 5 MG TABLET PO ×2 (09:26→19:58)
[2025-08-12] MEDS: MIDODRINE HCL 10 MG TABLET PO ×3 (09:26→18:32)
--- NOTE | 2025-08-12 09:48 | P.PNIM_ITS ---
Assessment and Plan Assessment and Plan (1) Atrial fibrillation with RVR: Code(s): I48.91 - Unspecified atrial fibrillation Status: Acute Assessment and Plan: Currently on amiodarone infusion. Also on Eliquis Plan for DC cardioversion tomorrow Cardiology following (2) Hypotension: Code(s): I95.9 - Hypotension, unspecified Status: Acute Assessment and Plan: Episode of hypotension likely secondary to AFib with RVR. Patient is now on amiodarone for rate control. s/p IVF bolus of fluids s/p Jaxon-synephrine monitor (3) Cardiomyopathy: Code(s): I42.9 - Cardiomyopathy, unspecified Status: Acute Assessment and Plan: 08/10 echo Summary 1. Complete two-dimensional, color flow and Doppler transthoracic ech ocardiogram is performed. 2. The left ventricle is moderately dilated with severely reduced systolic function. There is severe eccentric left ventricular hypertrophy. The left ventricular ejection fraction is visually estimated to be 25-30%. 3. The right ventricle is normal in size with mildly reduced systolic function. 4. The mitral valve leaflets are normal. There is posteriorly directed eccentric mitral regurgitation that is likely severe. Cardiology following Hold Entresto and beta-sivan due to low blood pressure Lasix also on hold (4) COPD (chronic obstructive pulmonary disease): Code(s): J44.9 - Chronic obstructive pulmonary disease, unspecified Status: Acute Assessment and Plan: History of COPD. Not in exacerbation Chest x-ray done on arrival to ICU shows no pneumothorax and hyperinflated lungs Chest CT on 08/09 1. No pneumothorax. Large right apical air cyst formation with advanced emphysematous changes also present. Milder air cysts formation of the left apical region. 2. Small bilateral pleural effusions, and small pericardial effusion. Mild patchy groundglass opacification lung bases may represent mild edema versus developing pneumonitis. 3. Other chronic findings as above. P.r.n. bronchodilators (5) Electrolyte abnormality: Code(s): E87.8 - Other disorders of electrolyte and fluid balance, not elsewhere classified Status: Acute Assessment and Plan: Patient received magnesium replaced Plan DVT prophylaxis -Eliquis Nutrition -heart healthy diet Code Status - Full Code Subjective Date/time seen: 08/12/25 09:48 Interval history: Comfortable at bedside on Amio infusion Review of Systems Review of Systems: 12 systems were reviewed with pertinent positives and negatives per HPI. Except as documented in the HPI, all other systems were reviewed and are negative. All systems reviewed & are unremarkable except as noted in HPI and below (HPI) Exam Narrative: General: Pt is alert awake and in NAD Lungs/Chest: Trachea central course breath sound No significant wheezing or crackle. Cardiac: Irregular rate and rhythm. Normal S1 S2. No murmurs Circulation: Pedal pulses are intact and symmetrical. Abdomen: Normal bowel sounds.. Soft. NT. ND. Extremities: No clubbing, cyanosis or edema. Warm : Weber in place Neurologic: Follows commands. Moves all 4 extremities PERRL AO x3 Skin: No Rash Const: Other: Thin body habitus, appears older than stated age, no acute distress HENMT: Other: Mucous membranes are moist, no oral pharyngeal erythema, dentures in upper and lower jaw Eyes: Other: No scleral icterus, bilateral lens implants noted, pupils are equal and reactive Neck: Other: Positive JVD, no lymphadenopathy Resp: Other: Accessory muscle use, tachypnea, crackles at the bases Cardio: Other: Irregularly irregular, tachycardic, 2+ bilateral radial and pedal pulses GI: Other: Soft, nontender, nondistended, positive bowel sounds Skin: Other: No jaundice, no pallor Neuro: Other: Alert orient x4, speech is clear, no facial asymmetry, no localizing neurologic deficits noted during the course of conversation Extrem: Other: 1+ pitting edema to the ankles bilateral ly Psych: Other: The patient has markedly pressured speech, flight of thoughts, difficult to redirect, pleasant and cooperative Objective Data Vital Signs Vital Signs: Vital Signs - 24 hr 08/11/25 10:00 08/11/25 11:30 08/11/25 11:34 Temperature 97.5 F L Pulse Rate 132 H 121 H Respiratory Rate 24 H Blood Pressure 91/52 L Pulse Oximetry 99 100 Oxygen Delivery Nasal Cannula Oxygen Flow Rate 5 08/11/25 12:00 08/11/25 12:05 08/11/25 12:12 Temperature Pulse Rate 133 H 123 H 132 H Respiratory Rate Blood Pressure 94/61 L 94/61 L Pulse Oximetry Oxygen Delivery Oxygen Flow Rate 08/11/25 12:30 08/11/25 12:45 08/11/25 12:45 Temperature Pulse Rate 110 H 105 H Respiratory Rate Blood Pressure 64/39 L Pulse Oximetry 94 Oxygen Delivery Nasal Cannula Oxygen Flow Rate 5 08/11/25 13:00 08/11/25 14:00 08/11/25 14:00 Temperature Pulse Rate 98 116 H 109 H Respiratory Rate 25 H 25 H Blood Pressure Pulse Oximetry 98 96 Oxygen Delivery Oxygen Flow Rate 08/11/25 14:14 08/11/25 14:15 08/11/25 15:00 Temperature Pulse Rate 116 H 116 H 112 H Respiratory Rate 20 Blood Pressure 76/58 L 76/58 L 114/93 H Pulse Oximetry 97 Oxygen Delivery Oxygen Flow Rate 08/11/25 16:00 08/11/25 16:00 08/11/25 16:00 Temperature Pulse Rate 121 H 121 H Respiratory Rate 20 Blood Pressure 107/51 L Pulse Oximetry 97 98 Oxygen Delivery Room Air Oxygen Flow Rate 08/11/25 16:00 08/11/25 16:00 08/11/25 17:00 Temperature Pulse Rate 106 H 105 H 120 H Respiratory Rate 18 Blood Pressure 104/89 104/89 100/74 Pulse Oximetry 98 Oxygen Delivery Oxygen Flow Rate 08/11/25 18:00 08/11/25 18:00 08/11/25 18:00 Temperature Pulse Rate 107 H 107 H 120 H Respiratory Rate Blood Pressure 106/78 107/63 Pulse Oximetry Oxygen Delivery Oxygen Flow Rate 08/11/25 18:00 08/11/25 19:00 08/11/25 20:00 Temperature Pulse Rate 116 H 108 H 113 H Respiratory Rate 18 16 Blood Pressure Pulse Oximetry 98 98 Oxygen Delivery Oxygen Flow Rate 08/11/25 20:00 08/11/25 20:00 08/11/25 20:00 Temperature 97.7 F Pulse Rate 122 H 115 H Respiratory Rate 14 Blood Pressure 104/58 L 105/83 Pulse Oximetry 98 Oxygen Delivery Room Air Oxygen Flow Rate 08/11/25 20:11 08/11/25 21:00 08/11/25 22:00 Temperature Pulse Rate 114 H 107 H 122 H Respiratory Rate 17 Blood Pressure 105/83 111/84 108/87 Pulse Oximetry 99 Oxygen Delivery Oxygen Flow Rate 08/11/25 22:00 08/11/25 22:00 08/11/25 23:00 Temperature Pulse Rate 122 H 122 H 116 H Respiratory Rate 23 H 24 H Blood Pressure 108/87 112/94 H Pulse Oximetry 92 100 Oxygen Delivery Oxygen Flow Rate 08/11/25 23:17 08/12/25 00:00 08/12/25 00:00 Temperature Pulse Rate 96 125 H Respiratory Rate Blood Pressure 112/94 H Pulse Oximetry Oxygen Delivery Room Air Oxygen Flow Rate 08/12/25 00:00 08/12/25 00:00 08/12/25 01:00 Temperature 97.6 F Pulse Rate 109 H 109 H 111 H Respiratory Rate 19 24 H Blood Pressure 109/76 109/76 82/65 L Pulse Oximetry 98 99 Oxygen Delivery Oxygen Flow Rate 08/12/25 02:00 08/12/25 02:30 08/12/25 03:00 Temperature Pulse Rate 118 H 118 H 104 H Respiratory Rate 27 H 30 H Blood Pressure 96/77 L 102/85 Pulse Oximetry 100 98 Oxygen Delivery Oxygen Flow Rate 08/12/25 04:00 08/12/25 04:00 08/12/25 04:00 Temperature Pulse Rate 134 H 119 H Respiratory Rate 22 H Blood Pressure 116/70 Pulse Oximetry 100 Oxygen Delivery Room Air Oxygen Flow Rate 08/12/25 05:00 08/12/25 06:00 08/12/25 07:00 Temperature Pulse Rate 124 H 105 H 110 H Respiratory Rate 20 20 Blood Pressure 101/75 96/65 L Pulse Oximetry 99 100 Oxygen Delivery Oxygen Flow Rate 08/12/25 07:46 08/12/25 07:46 08/12/25 08:00 Temperature 98.4 F Pulse Rate 117 H 117 H 112 H Respiratory Rate 22 H Blood Pressure 93/76 L 93/76 L 82/54 L Pulse Oximetry 97 Oxygen Delivery Oxygen Flow Rate 08/12/25 08:00 08/12/25 08:00 08/12/25 09:00 Temperature 98.1 F Pulse Rate 112 H 112 H 101 H Respiratory Rate 22 H 16 Blood Pressure 89/69 L Pulse Oximetry 97 96 Oxygen Delivery Room Air Oxygen Flow Rate 08/12/25 09:25 Temperature Pulse Rate 100 Respiratory Rate Blood Pressure 120/80 Pulse Oximetry Oxygen Delivery Oxygen Flow Rate Intake/Output Intake/Output: Intake & Output 08/09/25 08/10/25 08/11/25 08/12/25 23:59 23:59 23:59 23:59 Intake Total 1055.8 1529.4 1284.0 196.3 Output Total 2075 1650 400 Balance 1055.8 -545.6 -366.0 -203.7 Meds/Results Medications: Active Medications Generic Name Dose Route Start Last Admin Trade Name Freq PRN Reason Stop Dose Admin Acetaminophen 650 mg 08/11/25 14:07 Acetaminophen 325 Mg Tablet PO Q4H PRN Headache, Fever or Mild Pain Hydrocodone Bitart/Acetaminophen 1 tab 08/11/25 14:07 Hydrocodone/Acetaminophen (*Crx) 5-325 Mg Tablet PO Q4H PRN Pain Rated 4-6 Albuterol/Ipratropium 3 ml 08/11/25 14:06 Ipratropium 0.5 Mg/Albuterol Sulfate 2.5 Mg (Base) Ampul.Neb 3 Ml INHALATION Q6HRT PRN Wheezing Apixaban 5 mg 08/11/25 21:00 08/12/25 09:26 Apixaban 5 Mg Tablet PO 5 mg Q12HR MICAELA Administration Phenylephrine HCl 50 mg/ 250 mls @ 0 mls/hr 08/11/25 14:10 08/12/25 00:00 Sodium Chloride IV CONT 0 mcg/min .Q0M MICAELA 0 mls/hr Protocol Titration 0 MCG/MIN Amiodarone HCl/Dextrose 360 mg in 200 mls @ 16.667 mls/hr 08/11/25 20:00 08/12/25 07:46 Nexterone 360 Mg/D5w 200 Ml IV CONT 0.5 mg/min .Q12H MICAELA 16.67 mls/hr 0.5 MG/MIN Administration Midodrine 10 mg 08/12/25 09:00 08/12/25 09:26 Midodrine Hcl 10 Mg Tablet PO 10 mg TID MICAELA Administration Sodium Chloride 10 ml 08/11/25 22:00 08/12/25 05:58 Central Line Flush IV PUSH 10 ml Q8HR MICAELA Administration Sodium Chloride 10 ml 08/11/25 15:32 Central Line Flush IV PUSH PRN PRN with TPN bag changes Sodium Chloride 20 ml 08/11/25 15:32 Central Line Flush IV PUSH PRN PRN after blood draws Radiology Results: ITS Impressions Chest CT 08/09/25 15:51 IMPRESSION: 1. No pneumothorax. Large right apical air cyst formation with advanced emphysematous changes also present. Milder air cysts formation of the left apical region. 2. Small bilateral pleural effusions, and small pericardial effusion. Mild patchy groundglass opacification lung bases may represent mild edema versus developing pneumonitis. 3. Other chronic findings as above. Chest X-Ray 08/11/25 15:41 Impression: No acute cardiopulmonary abnormality. Labs Labs: Laboratory Results - last 24 hr 08/11/25 08/11/25 08/12/25 11:49 12:10 05:50 WBC 8.3 RBC 4.97 Hgb 15.1 Hct 45.6 MCV 91.8 MCH 30.4 MCHC 33.1 RDW 13.2 Plt Count 228 MPV 11.6 H Immature Gran % (Auto) Not Reportable Neut % (Auto) Not Reportable Lymph % (Auto) Not Reportable [place] % (Auto) Not Reportable Eos % (Auto) Not Reportable Baso % (Auto) Not Reportable Lymph # (Auto) Not Reportable [place] # (Auto) Not Reportable Eos # (Auto) Not Reportable Baso # (Auto) Not Reportable Abs Immat Gran (auto) Not Reportable Absolute Neuts (auto) Not Reportable Absolute Nucleated RBC Not Reportable Total Counted 100 Neutrophils % (Manual) 68 Band Neutrophils % 2 Lymphocytes % (Manual) 24 Monocytes % (Manual) 6 Nucleated RBC % Not Reportable Abs Neuts (Manual) 5.81 Abs Lymphs (Manual) 1.99 Abs Monocytes (Manual) 0.49 Platelet Estimate Adequate Anisocytosis 1+ [place] Cells 1+ Schistocytes None seen Puncture Site Right radial ABG pH 7.514 H* ABG pCO2 23.3 L* ABG pO2 111.2 H ABG PO2/FiO2 Ratio 2.78 ABG HCO3 18.3 L ABG O2 Saturation 98.5 ABG O2 Content 23.2 H ABG Base Excess -2.2 A-a Gradient 147.2 Oxyhemoglobin 98.3 Total Hemoglobin 16.7 O2 Delivery Device Nasal cannula O2 Liters/Min 5.0 FiO2 40 Sodium 134 L Potassium 4.1 Chloride 105 Carbon Dioxide 24 Anion Gap 5 BUN 22 H Creatinine 1.26 Estim Creat Clear Calc 46 Estimated GFR 58 L Glucose 102 POC Capillary Glucose 145 H Calcium 8.8 Magnesium 2.2 Total Bilirubin 0.5 AST 27 ALT 20 Alkaline Phosphatase 65 Total Protein 6.4 Albumin 3.5 Quality VTE Prophylaxis VTE prophylaxis: pharmacologic ordered (Lovenox 1 milligram/kilogram followed by initiation of Eliquis)
[2025-08-13] VITALS (26 sets, daily range): BP systolic 82–167; BP diastolic 53–94; PULSE 76–126; RESP 13–38; TEMP 36.3–36.8; O2SAT 94–100
--- NOTE | 2025-08-13 | ECHO_ITS ---
Patient Info Name: Anabel Gayle Age: 65 years : 1960 Gender: Male Ht: 74 in Wt: 140 lbs BSA: 1.80 m2 HR: 78 bpm BP: 96 / 71 mmHg Technical Quality: Fair Exam Date: 08/13/2025 1:01 PM Patient Status: I Admit Date: 08/10/2025 Exam Type: CA echo transesophageal Complete two-dimensional, color flow and Doppler transesophageal study is performed. Staff Referring Physician: Mirza Arboleda MD Broadcast Maintenance Engineer: Moses Lobato III Attending Provider: Magda Corral Summary 1. Poor quality images. 2. The atrial appendage is free of thrombus. 3. There is severe mitral regurgitation. Cannot rule out flail posterior mitral valve leaflet. Complications There were no complication prior to, during or in recovery from the transesophageal echocardiogram. Medications The posterior pharynx was sprayed with Cetacaine spray. Sedation provided by Anesthesia team. Procedure Details The patient arrived in a fasting state after obtaining informed consent. The transesophageal probe was passed into the posterior pharynx, mid-esophagus, and distal esophagus. Imaging was performed at multiple levels. The patient tolerated the procedure well and there were no complications. The patient was transferred out of the examination area in satisfactory condition. Left Ventricle The left ventricle is normal in size with severely reduced systolic function. Right Ventricle The right ventricle is normal in size with reduced systolic function. Atrial Appendage The atrial appendage is free of thrombus. Mitral Valve There is severe mitral regurgitation. Cannot rule out flail posterior mitral valve leaflet. Report Signatures
[2025-08-13 05:07] LABS: Hematocrit 45.7 % (42.0-52.0); Hemoglobin 14.7 g/dL (14.0-18.0); Mean Corpuscular HGB Conc 32.2 g/dl (32-36); Mean Corpuscular Hemoglobin 29.9 pg (26-34); Mean Corpuscular Volume 93.1 fl (80-100); Platelet Count Result 211 k/mm3 (150-375); Red Blood Count 4.91 M/mm3 (4.6-6.20); White Blood Count 8.1 K/mm3 (4.5-10.0)
[2025-08-13] MEDS: CENTRAL LINE FLUSH 10 ML IV PUSH ×3 (05:33→22:10)
[2025-08-13 05:58] LABS: Alanine Aminotransferase 21 U/L (6-50); Albumin Level 3.7 g/dL (3.5-5.1); Alkaline Phosphatase 66 U/L (38-126); Anion Gap 6 mmol/L (4-12); Aspartate Amino Transferase 27 U/L (17-59); Bilirubin,Total 0.5 mg/dL (0.2-1.3); Blood Urea Nitrogen 23 mg/dL (9-20); Calcium 8.9 mg/dL (8.4-10.2); Carbon Dioxide 23 mmol/L (22-30); Chloride 104 mmol/L (98-107); Estimated CRCL calculation 49 ml/min; Estimated Glomerular Filt Rate > 60; Glucose 99 mg/dL (65-110); Magnesium 1.9 mg/dL (1.6-2.3); Potassium 3.9 mmol/L (3.4-5.0); Sodium 133 mmol/L (137-145); Total Protein 6.9 g/dL (6.3-8.2)
[2025-08-13] MEDS: APIXABAN 5 MG TABLET PO ×2 (08:20→20:27)
[2025-08-13] MEDS: MIDODRINE HCL 10 MG TABLET PO ×3 (08:20→16:29)
--- NOTE | 2025-08-13 09:43 | P.PNINT_ITS ---
Assessment and Plan Assessment and Plan (1) Atrial fibrillation with RVR: Code(s): I48.91 - Unspecified atrial fibrillation Status: Acute Assessment and Plan: Currently on amiodarone infusion. Also on Eliquis Cardiology is following and patient is scheduled for DC cardioversion tomorrow (2) Hypotension: Code(s): I95.9 - Hypotension, unspecified Status: Acute Assessment and Plan: Episode of hypotension likely secondary to AFib with RVR. Patient is now on amiodarone for rate control. Patient was given cautious IVF bolus of fluids He was on Jaxon-Synephrine infusion for short while but has been off for more than 24 hours. (3) Cardiomyopathy: Code(s): I42.9 - Cardiomyopathy, unspecified Status: Acute Assessment and Plan: 08/10 echo Summary 1. Complete two-dimensional, color flow and Doppler transthoracic echocardiogram is performed. 2. The left ventricle is moderately dilated with severely reduced systolic function. There is severe eccentric left ventricular hypertrophy. The left ventricular ejection fraction is visually estimated to be 25-30%. 3. The right ventricle is normal in size with mildly reduced systolic function. 4. The mitral valve leaflets are normal. There is posteriorly directed eccentric mitral regurgitation that is likely severe. Cardiology following Hold Entresto and beta-sivan due to low blood pressure Lasix also on hold (4) COPD (chronic obstructive pulmonary disease): Code(s): J44.9 - Chronic obstructive pulmonary disease, unspecified Status: Acute Assessment and Plan: History of COPD. Not in exacerbation Chest x-ray done on arrival to ICU shows no pneumothorax and hyperinflated lungs Chest CT on 08/09 1. No pneumothorax. Large right apical air cyst formation with advanced emphysem atous changes also present. Milder air cysts formation of the left apical region. 2. Small bilateral pleural effusions, and small pericardial effusion. Mild patchy groundglass opacification lung bases may represent mild edema versus developing pneumonitis. 3. Other chronic findings as above. P.r.n. bronchodilators (5) Electrolyte abnormality: Code(s): E87.8 - Other disorders of electrolyte and fluid balance, not elsewhere classified Status: Acute Assessment and Plan: Magnesium and potassium replacement Plan DVT prophylaxis -Eliquis Nutrition -heart healthy diet Code Status - Full Code transfer out ICU today Subjective Date/time seen: 08/13/25 Overnight events reviewed. Afebrile on room air Continues to be on amiodarone infusion. Still in AFib but ventricular rate seems to be controlled in 100s denies any complaints and states he feels fine . Patient denies fever, chest pain, shortness of breath, cough, nausea vomiting, abdominal pain,, diarrhea, headache or constipation. Other Vitals acceptable tolerating p.o. diet patient is scheduled for DC cardioversion today Review of Systems Review of Systems: All systems reviewed & are unremarkable except as noted in HPI and below (HPI) Exam Narrative: General: Pt is alert awake and in NAD Lungs/Chest: Trachea central course breath sound No significant wheezing or crackle. Cardiac: Irregular rate and rhythm. Normal S1 S2. No murmurs Circulation: Pedal pulses are intact and symmetrical. Abdomen: Normal bowel sounds.. Soft. NT. ND. Extremities: No clubbing, cyanosis or edema. Warm : Weber in place Neurologic: Follows commands. Moves all 4 extremities PERRL AO x3 Skin: No Rash Objective Data Vital Signs Vital Signs: Vital Signs - 24 hr 08/12/25 10:00 08/12/25 10:00 08/12/25 10:00 Temperature 36.7 C Pulse Rate 100 118 H 121 H Respiratory Rate 15 Blood Pressure 99/67 L 99/67 L Pulse Oximetry 96 Oxygen Delivery 08/12/25 11:00 08/12/25 12:00 08/12/25 12:00 Temperature 36.3 C L 36.4 C Pulse Rate 121 H 125 H 111 H Respiratory Rate 24 H 17 17 Blood Pressure 103/80 121/85 Pulse Oximetry 99 100 100 Oxygen Delivery Room Air 08/12/25 12:00 08/12/25 12:00 08/12/25 13:00 Temperature Pulse Rate 111 H 111 H 111 H Respiratory Rate 24 H Blood Pressure 104/80 121/85 Pulse Oximetry 97 Oxygen Delivery 08/12/25 14:00 08/12/25 14:00 08/12/25 14:00 Temperature 36.4 C Pulse Rate 114 H 118 H 112 H Respiratory Rate 17 Blood Pressure 116/79 94/76 L Pulse Oximetry 95 Oxygen Delivery 08/12/25 15:00 08/12/25 16:00 08/12/25 16:00 Temperature 36.5 C Pulse Rate 109 H 114 H 111 H Respiratory Rate 18 97 H Blood Pressure 100/66 99/71 L 99/71 L Pulse Oximetry 99 13 L Oxygen Delivery 08/12/25 16:00 08/12/25 16:00 08/12/25 17:00 Temperature Pulse Rate 117 H 117 H 116 H Respiratory Rate 25 H 18 Blood Pressure 101/62 Pulse Oximetry 100 97 Oxygen Delivery Room Air 08/12/25 18:00 08/12/25 18:00 08/12/25 18:00 Temperature 36.4 C Pulse Rate 107 H 117 H 97 Respiratory Rate 20 Blood Pressure 97/76 L 97/76 L Pulse Oximetry 100 Oxygen Delivery 08/12/25 19:00 08/12/25 19:21 08/12/25 19:21 Temperature Pulse Rate 107 H 105 H 105 H Respiratory Rate 29 H Blood Pressure 97/82 L 97/82 L 97/82 L Pulse Oximetry 100 Oxygen Delivery 08/12/25 20:00 08/12/25 20:00 08/12/25 20:00 Temperature 37.1 C Pulse Rate 96 112 H Respiratory Rate 20 Blood Pressure 78/67 L Pulse Oximetry 100 Oxygen Delivery Room Air 08/12/25 20:00 08/12/25 21:00 08/12/25 22:00 Temperature Pulse Rate 111 H 94 90 Respiratory Rate 26 H Blood Pressure 104/70 104/74 108/74 Pulse Oximetry 99 Oxygen Delivery 08/12/25 22:00 08/12/25 22:00 08/12/25 23:00 Temperature Pulse Rate 102 H 103 H 103 H Respiratory Rate 28 H 19 Blood Pressure 92/52 L 93/79 L Pulse Oximetry 94 94 Oxygen Delivery 08/13/25 00:00 08/13/25 00:00 08/13/25 00:00 Temperature 36.3 C L Pulse Rate 112 H 112 H Respiratory Rate 27 H Blood Pressure 100/73 100/73 Pulse Oximetry 96 Oxygen Delivery Room Air 08/13/25 00:00 08/13/25 01:00 08/13/25 02:00 Temperature Pulse Rate 112 H 100 109 H Respiratory Rate 17 Blood Pressure 96/79 L 96/71 L Pulse Oximetry 97 Oxygen Delivery 08/13/25 02:00 08/13/25 02:00 08/13/25 03:00 Temperature Pulse Rate 109 H 109 H 95 Respiratory Rate 21 H 15 Blood Pressure 96/71 L 96/77 L Pulse Oximetry 97 97 Oxygen Delivery 08/13/25 04:00 08/13/25 04:00 08/13/25 04:00 Temperature 36.5 C Pulse Rate 108 H 126 H 126 H Respiratory Rate 18 Blood Pressure 100/73 100/73 Pulse Oximetry 94 Oxygen Delivery 08/13/25 04:00 08/13/25 05:00 08/13/25 06:00 Temperature Pulse Rate 108 H 113 H Respiratory Rate 19 Blood Pressure 93/75 L Pulse Oximetry 96 Oxygen Delivery Room Air 08/13/25 06:00 08/13/25 06:00 08/13/25 06:59 Temperature Pulse Rate 113 H 113 H 119 H Respiratory Rate 19 Blood Pressure 93/77 L 93/77 L 93/79 L Pulse Oximetry 94 Oxygen Delivery 08/13/25 06:59 08/13/25 07:00 08/13/25 08:00 Temperature 36.8 C Pulse Rate 119 H 119 H 113 H Respiratory Rate 25 H 24 H Blood Pressure 93/79 L 112/91 H 85/53 L Pulse Oximetry 95 96 Oxygen Delivery 08/13/25 08:00 08/13/25 08:00 08/13/25 09:00 Temperature Pulse Rate 107 H 107 H 114 H Respiratory Rate 24 H 23 H Blood Pressure 113/78 Pulse Oximetry 94 97 Oxygen Delivery Room Air 08/13/25 09:00 Temperature Pulse Rate 114 H Respiratory Rate 23 H Blood Pressure 113/78 Pulse Oximetry 97 Oxygen Delivery Intake/Output Intake/Output: Intake & Output 08/10/25 08/11/25 08/12/25 08/13/25 23:59 23:59 23:59 23:59 Intake Total 1529.4 1284.0 1033.3 149.6 Output Total 2075 1650 550 350 Balance -545.6 -366.0 483.3 -200.4 Meds/Results Medications: Active Medications Generic Name Dose Route Start Last Admin Trade Name Freq PRN Reason Stop Dose Admin Acetaminophen 650 mg 08/11/25 14:07 Acetaminophen 325 Mg Tablet PO Q4H PRN Headache, Fever or Mild Pain Hydrocodone Bitart/Acetaminophen 1 tab 08/11/25 14:07 Hydrocodone/Acetaminophen (*Crx) 5-325 Mg Tablet PO Q4H PRN Pain Rated 4-6 Albuterol/Ipratropium 3 ml 08/11/25 14:06 Ipratropium 0.5 Mg/Albuterol Sulfate 2.5 Mg (Base) Ampul.Neb 3 Ml INHALATION Q6HRT PRN Wheezing Apixaban 5 mg 08/11/25 21:00 08/13/25 08:20 Apixaban 5 Mg Tablet PO 5 mg Q12HR MICAELA Administration Phenylephrine HCl 50 mg/ 250 mls @ 0 mls/hr 08/11/25 14:10 08/12/25 00:00 Sodium Chloride IV CONT 0 mcg/min .Q0M MCIAELA 0 mls/hr Protocol Titration 0 MCG/MIN Amiodarone HCl/Dextrose 360 mg in 200 mls @ 16.667 mls/hr 08/11/25 20:00 08/13/25 06:59 Nexterone 360 Mg/D5w 200 Ml IV CONT 0.5 mg/min .Q12H MICAELA 16.67 mls/hr 0.5 MG/MIN Administration Midodrine 10 mg 08/12/25 09:00 08/13/25 08:20 Midodrine Hcl 10 Mg Tablet PO 10 mg TID MICAELA Administration Sodium Chloride 10 ml 08/11/25 22:00 08/13/25 05:33 Central Line Flush IV PUSH 10 ml Q8HR MICAELA Administration Sodium Chloride 10 ml 08/11/25 15:32 Central Line Flush IV PUSH PRN PRN with TPN bag changes Sodium Chloride 20 ml 08/11/25 15:32 Central Line Flush IV PUSH PRN PRN after blood draws Radiology Results: ITS Impressions Chest CT 08/09/25 15:51 IMPRESSION: 1. No pneumothorax. Large right apical air cyst formation with advanced emphysematous changes also present. Milder air cysts formation of the left apical region. 2. Small bilateral pleural effusions, and small pericardial effusion. Mild patchy groundglass opacification lung bases may represent mild edema versus developing pneumonitis. 3. Other chronic findings as above. Chest X-Ray 08/11/25 15:41 Impression: No acute cardiopulmonary abnormality. Labs Labs: Laboratory Results - last 24 hr 08/13/25 04:11 WBC 8.1 RBC 4.91 Hgb 14.7 Hct 45.7 MCV 93.1 MCH 29.9 MCHC 32.2 RDW 13.0 Plt Count 211 MPV 12.0 H Sodium 133 L Potassium 3.9 Chloride 104 Carbon Dioxide 23 Anion Gap 6 BUN 23 H Creatinine 1.19 Estim Creat Clear Calc 49 Estimated GFR > 60 Glucose 99 Calcium 8.9 Magnesium 1.9 Total Bilirubin 0.5 AST 27 ALT 21 Alkaline Phosphatase 66 Total Protein 6.9 Albumin 3.7 Quality VTE Prophylaxis VTE prophylaxis: pharmacologic ordered (Lovenox 1 milligram/kilogram followed by initiation of Eliquis)
[2025-08-13] MEDS: MAGNESIUM OXIDE 400 MG TABLET PO (10:34)
[2025-08-13] MEDS: POTASSIUM CHLORIDE 20 MEQ ER TABLET PO (10:34)
--- NOTE | 2025-08-13 12:35 | ECG_ITS ---
Test Date: 2025-08-13 12:47:41 Measurements Intervals [place] Rate: 101 P: 0 MN: 0 QRS: 95 QRSD: 98 T: 87 QT: 375 QTc: 488 Interpretive Statements ATRIAL FIBRILLATION WITH RAPID VENTRICULAR RESPONSE ANTEROSEPTAL INFARCT, AGE INDETERMINATE BORDERLINE ST-T WAVE ABNORMALITY- INF/LAT LEADS BASELINE ARTIFACT- I, II, III, AVR, AVL, AVF ABNORMAL ECG Compared to ECG 08/10/2025 07:47:00 HEART RATE HAS INCREASED Electronically Signed On 08-13-2025 13:02:05 PLANT FAC[employer] TECHNICIAN by Basilio Aquino D.O.
--- NOTE | 2025-08-13 13:15 | ECG_ITS ---
Test Date: 2025-08-13 14:28:05 Measurements Intervals [place] Rate: 87 P: 94 ME: 205 QRS: 93 QRSD: 98 T: 100 QT: 399 QTc: 482 Interpretive Statements SINUS RHYTHM WITH FREQUENT SUPRAVENTRICULAR PREMATURE COMPLEXES RIGHT AXIS DEVIATION BORDERLINE AV CONDUCTION DELAY ANTEROSEPTAL INFARCT, AGE INDETERMINATE ABNORMAL ECG Compared to ECG 08/13/2025 12:47:41 Atrial fibrillation no longer present Electronically Signed On 08-13-2025 14:57:47 DIRECTOR [employer] by Basilio Aquino D.O.
--- NOTE | 2025-08-13 13:41 | WPDHPUPDATE1 ---
History and Physical Update Update Date/Time: 08/13/25 13:41 History and Physical has been reviewed, including an updated exam of the patient. There are NO changes in the patient's condition. Risks, benefits, and alternatives have been discussed and questions answered. Patient agrees to proceed with procedure.
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
--- NOTE | 2025-08-13 15:23 | P.PCNCVR_ITS ---
Cardioversion Cardioversion Date of procedure: 08/13/25 Procedure: Synchronized cardioversion Pre-op diagnosis: Atrial flutter Post-op diagnosis: Same Indications: Paroxysmal atrial flutter in acute decompensated systolic heart failure with severe mitral regurgitation Description of procedure: After confirmation of left atrial appendage being free of thrombus, 200 joules of synchronized energy was delivered. The patient did not immediately convert to sinus rhythm however within a minute, there are evidence of sinus rhythm. There are significant amount of premature atrial contractions and eventually the rhythm degenerated into atrial tachycardia for which she received a 360 joule synchronized cardioversion with denominational of sinus rhythm. Sedation: The sedation provided by Anesthesia team Findings: Successful denominational of sinus rhythm Conclusion: Can DC amiodarone drip tomorrow. Start amiodarone 400 p.o. b.i.d. with eventual titration to 200 mg p.o. daily Continue anticoagulation.
[2025-08-13] MEDS: AMIODARONE HCL 200 MG TABLET 400 MG PO (16:29)
--- NOTE | 2025-08-13 16:52 | PC.NURSE ---
report given to Andrea. Patient transported via wheelchair to room 207 with bus driver/monitor on and functioning. Denies discomfort at this time. Personal belongings with patient and family. No acute distress noted.
[2025-08-14] VITALS (17 sets, daily range): BP systolic 93–105; BP diastolic 64–71; PULSE 75–98; RESP 18–20; TEMP 36.4–36.9; O2SAT 95–100
[2025-08-14 04:48] LABS: Hematocrit 41.9 % (42.0-52.0); Hemoglobin 13.7 g/dL (14.0-18.0); Mean Corpuscular HGB Conc 32.7 g/dl (32-36); Mean Corpuscular Hemoglobin 30.2 pg (26-34); Mean Corpuscular Volume 92.5 fl (80-100); Platelet Count Result 177 k/mm3 (150-375); Red Blood Count 4.53 M/mm3 (4.6-6.20); White Blood Count 5.8 K/mm3 (4.5-10.0)
[2025-08-14 05:01] LABS: Alanine Aminotransferase 20 U/L (6-50); Albumin Level 3.2 g/dL (3.5-5.1); Alkaline Phosphatase 62 U/L (38-126); Anion Gap 5 mmol/L (4-12); Aspartate Amino Transferase 26 U/L (17-59); Bilirubin,Total 0.7 mg/dL (0.2-1.3); Blood Urea Nitrogen 22 mg/dL (9-20); Calcium 8.7 mg/dL (8.4-10.2); Carbon Dioxide 24 mmol/L (22-30); Chloride 105 mmol/L (98-107); Estimated CRCL calculation 52 ml/min; Estimated Glomerular Filt Rate > 60; Glucose 83 mg/dL (65-110); Magnesium 1.8 mg/dL (1.6-2.3); Potassium 4.0 mmol/L (3.4-5.0); Sodium 134 mmol/L (137-145); Total Protein 6.0 g/dL (6.3-8.2)
[2025-08-14] MEDS: CENTRAL LINE FLUSH 10 ML IV PUSH ×2 (06:32→21:04)
--- NOTE | 2025-08-14 08:03 | P.PNIM_ITS ---
Assessment and Plan Assessment and Plan (1) Atrial fibrillation with RVR: Code(s): I48.91 - Unspecified atrial fibrillation Status: Acute Assessment and Plan: Amiodarone 400 mg p.o. b.i.d. Eliquis 5 mg p.o. b.i.d. Metoprolol 12.5 mg p.o. b.i.d. Cardiology is following S/P DC cardioversion (2) Hypotension: Code(s): I95.9 - Hypotension, unspecified Status: Acute Assessment and Plan: Episode of hypotension likely secondary to AFib with RVR. Amiodarone 400 mg p.o. b.i.d., midodrine 10 mg p.o. t.i.d. metoprolol 12.5 mg p.o. b.i.d. Patient was given cautious IVF bolus of fluids He was on Jaxon-Synephrine infusion for short while but has been off for more than 24 hours. (3) Cardiomyopathy: Code(s): I42.9 - Cardiomyopathy, unspecified Status: Acute Assessment and Plan: 08/10 echo Summary 1. Complete two-dimensional, color flow and Doppler transthoracic echocardiogram is performed. 2. The left ventricle is moderately dilated with severely reduced systolic function. There is severe eccentric left ventricular hypertrophy. The left ventricular ejection fraction is visually estimated to be 25-30%. 3. The right ventricle is normal in size with mildly reduced systolic function. 4. The mitral valve leaflets are normal. There is posteriorly directed eccentric mitral regurgitation that is likely severe. Cardiology following Hold Entresto and beta-sivan due to low blood pressure Lasix also on hold (4) COPD (chronic obstructive pulmonary disease): Code(s): J44.9 - Chronic obstructive pulmonary disease, unspecified Status: Acute Assessment and Plan: History of COPD. Not in exacerbation Chest x-ray done on arrival to ICU shows no pneumothorax and hyperinflated lungs Chest CT on 08/09 1. No pneumothorax. Large right apical air cyst formation with advanced emphysematous changes also present. Milder air cysts formation of the left apical region. 2. Small bilateral pleural effusions, and small pericardial effusion. Mild patchy groundglass opacification lung bases may represent mild edema versus developing pneumonitis. 3. Other chronic findings as above. P.r.n. bronchodilators (5) Electrolyte abnormality: Code(s): E87.8 - Other disorders of electrolyte and fluid balance, not elsewhere classified Status: Acute Assessment and Plan: Magnesium and potassium replacement Plan DVT prophylaxis -Eliquis Nutrition -heart healthy diet Code Status - Full Code Subjective Date/time seen: 08/14/25 08:03 Interval history: Patient is admitted in the setting of CHF, s/p cardioversion. Patient is currently on amiodarone 400 mg p.o. b.i.d., metoprolol 12.5 mg p.o. b.i.d. and apixaban 5 mg p.o. b.i.d.. His CHF possibly due to drug abuse. Patient also has severe MR. Ischemic Cardiomyopathy and structural heart disease workup as 0P Review of Systems Review of Systems: 12 systems were reviewed with pertinent positives and negatives per HPI. Except as documented in the HPI, all other systems were reviewed and are negative. All systems reviewed & are unremarkable except as noted in HPI and below (HPI) Exam Narrative: General: Pt is alert awake and in NAD Lungs/Chest: Trachea central course breath sound No significant wheezing or crackle. Cardiac: Irregular rate and rhythm. Normal S1 S2. No murmurs Circulation: Pedal pulses are intact and symmetrical. Abdomen: Normal bowel sounds.. Soft. NT. ND. Extremities: No clubbing, cyanosis or edema. Warm : Weber in place Neurologic: Follows commands. Moves all 4 extremities PERRL AO x3 Skin: No Rash Const: Other: Thin body habitus, appears older than stated age, no acute distress HENMT: Other: Mucous membranes are moist, no oral pharyngeal erythema, dentures in upper and lower jaw Eyes: Other: No scleral icterus, bilateral lens implants noted, pupils are equal and reactive Neck: Other: Positive JVD, no lymphadenopathy Resp: Other: Accessory muscle use, tachypnea, crackles at the bases Cardio: Other: Irregularly irregular, tachycardic, 2+ bilateral radial and pedal pulses GI: Other: Soft, nontender, nondistended, positive bowel sounds Skin: Other: No jaundice, no pallor Neuro: Other: Alert orient x4, speech is clear, no facial asymmetry, no localizing neurologic deficits noted during the course of conversation Extrem: Other: 1+ pitting edema to the ankles bilateral ly Psych: Other: The patient has markedly pressured speech, flight of thoughts, difficult to redirect, pleasant and cooperative Objective Data Vital Signs Vital Signs: Vital Signs - 24 hr 08/13/25 08:24 08/13/25 09:00 08/13/25 09:00 Temperature Pulse Rate 120 H 114 H 114 H Respiratory Rate 23 H 23 H Blood Pressure 113/94 H 113/78 113/78 Pulse Oximetry 97 97 Oxygen Delivery 08/13/25 09:00 08/13/25 10:00 08/13/25 10:00 Temperature 97.6 F Pulse Rate 114 H 99 106 H Respiratory Rate 18 Blood Pressure 113/78 82/71 L 82/71 L Pulse Oximetry 97 Oxygen Delivery 08/13/25 10:00 08/13/25 11:00 08/13/25 12:00 Temperature 97.7 F 98.2 F Pulse Rate 106 H 103 H 116 H Respiratory Rate 38 H 24 H Blood Pressure 90/69 L 104/85 Pulse Oximetry 96 97 Oxygen Delivery 08/13/25 12:00 08/13/25 12:00 08/13/25 12:00 Temperature Pulse Rate 112 H 112 H 111 H Respiratory Rate 27 H Blood Pressure 104/85 Pulse Oximetry 98 Oxygen Delivery Room Air 08/13/25 13:00 08/13/25 14:00 08/13/25 14:00 Temperature Pulse Rate 107 H 110 H 114 H Respiratory Rate 13 19 Blood Pressure 101/88 105/81 Pulse Oximetry 98 100 Oxygen Delivery 08/13/25 14:00 08/13/25 14:30 08/13/25 14:45 Temperature Pulse Rate 114 H 78 77 Respiratory Rate 20 19 Blood Pressure 105/81 96/71 L 94/73 L Pulse Oximetry 99 96 Oxygen Delivery Room Air Room Air 08/13/25 15:00 08/13/25 15:00 08/13/25 16:00 Temperature 97.6 F Pulse Rate 81 90 90 Respiratory Rate 14 26 H Blood Pressure 90/69 L 90/69 L Pulse Oximetry 98 98 Oxygen Delivery Room Air 08/13/25 16:00 08/13/25 16:00 08/13/25 16:00 Temperature 98.1 F Pulse Rate 90 90 90 Respiratory Rate 22 H 23 H Blood Pressure 164/66 H 167/81 H Pulse Oximetry 100 100 Oxygen Delivery Autopap 08/13/25 16:29 08/13/25 17:00 08/13/25 18:00 Temperature Pulse Rate 88 Respiratory Rate Blood Pressure 111/71 111/70 Pulse Oximetry 98 Oxygen Delivery 08/13/25 18:00 08/13/25 20:00 08/13/25 20:00 Temperature 97.9 F Pulse Rate 76 80 93 Respiratory Rate 20 Blood Pressure 100/63 Pulse Oximetry 99 98 Oxygen Delivery Room Air 08/13/25 20:00 08/13/25 21:58 08/14/25 00:00 Temperature 98.5 F Pulse Rate 84 85 78 Respiratory Rate 20 Blood Pressure 99/68 L Pulse Oximetry 100 Oxygen Delivery 08/14/25 00:00 08/14/25 00:00 08/14/25 02:00 Temperature Pulse Rate 97 98 86 Respiratory Rate Blood Pressure Pulse Oximetry 100 Oxygen Delivery Room Air 08/14/25 03:21 08/14/25 04:00 08/14/25 04:00 Temperature 98.1 F Pulse Rate 82 82 78 Respiratory Rate 20 Blood Pressure 105/69 Pulse Oximetry 98 95 Oxygen Delivery Room Air 08/14/25 06:00 Temperature Pulse Rate 81 Respiratory Rate Blood Pressure Pulse Oximetry Oxygen Delivery Intake/Output Intake/Output: Intake & Output 08/11/25 08/12/25 08/13/25 08/14/25 23:59 23:59 23:59 23:59 Intake Total 1284.0 1033.3 839.8 444 Output Total 1650 550 350 Balance -366.0 483.3 489.8 444 Meds/Results Medications: Active Medications Generic Name Dose Route Start Last Admin Trade Name Freq PRN Reason Stop Dose Admin Acetaminophen 650 mg 08/11/25 14:07 Acetaminophen 325 Mg Tablet PO Q4H PRN Headache, Fever or Mild Pain Hydrocodone Bitart/Acetaminophen 1 tab 08/11/25 14:07 Hydrocodone/Acetaminophen (*Crx) 5-325 Mg Tablet PO Q4H PRN Pain Rated 4-6 Albuterol/Ipratropium 3 ml 08/11/25 14:06 Ipratropium 0.5 Mg/Albuterol Sulfate 2.5 Mg (Base) Ampul.Neb 3 Ml INHALATION Q6HRT PRN Wheezing Amiodarone HCl 400 mg 08/13/25 17:00 08/13/25 16:29 Amiodarone Hcl 200 Mg Tablet PO 400 mg BID MICAELA Administration Apixaban 5 mg 08/11/25 21:00 08/13/25 20:27 Apixaban 5 Mg Tablet PO 5 mg Q12HR MICAELA Administration Midodrine 10 mg 08/12/25 09:00 08/13/25 16:29 Midodrine Hcl 10 Mg Tablet PO 10 mg TID MICAELA Administration Sodium Chloride 10 ml 08/11/25 22:00 08/14/25 06:32 Central Line Flush IV PUSH 10 ml Q8HR MICAELA Administration Sodium Chloride 10 ml 08/11/25 15:32 Central Line Flush IV PUSH PRN PRN with TPN bag changes Sodium Chloride 20 ml 08/11/25 15:32 Central Line Flush IV PUSH PRN PRN after blood draws Radiology Results: ITS Impressions Chest CT 08/09/25 15:51 IMPRESSION: 1. No pneumothorax. Large right apical air cyst formation with advanced emphysematous changes also present. Milder air cysts formation of the left apical region. 2. Small bilateral pleural effusions, and small pericardial effusion. Mild patchy groundglass opacification lung bases may represent mild edema versus developing pneumonitis. 3. Other chronic findings as above. Chest X-Ray 08/11/25 15:41 Impression: No acute cardiopulmonary abnormality. Labs Labs: Laboratory Results - last 24 hr 08/14/25 04:34 WBC 5.8 RBC 4.53 L Hgb 13.7 L Hct 41.9 L MCV 92.5 MCH 30.2 MCHC 32.7 RDW 13.1 Plt Count 177 MPV 11.8 H Sodium 134 L Potassium 4.0 Chloride 105 Carbon Dioxide 24 Anion Gap 5 BUN 22 H Creatinine 1.15 Estim Creat Clear Calc 52 Estimated GFR > 60 Glucose 83 Calcium 8.7 Magnesium 1.8 Total Bilirubin 0.7 AST 26 ALT 20 Alkaline Phosphatase 62 Total Protein 6.0 L Albumin 3.2 L Quality VTE Prophylaxis VTE prophylaxis: pharmacologic ordered (Lovenox 1 milligram/kilogram followed by initiation of Eliquis) Hospitalist MIPS Advance Care Plan I have confirmed that the patient's Advanced Care Plan is present, code status is documented, or surrogate decision maker is listed in patient medical record.: Yes Medication Reconciliation I have utilized all available resources to obtain, update and review the patients current medications (includes all prescriptions, OTC, herbals, cannabis, and nutritional supplements).: Yes
[2025-08-14] MEDS: AMIODARONE HCL 200 MG TABLET 400 MG PO ×2 (09:01→17:06)
[2025-08-14] MEDS: APIXABAN 5 MG TABLET PO ×2 (09:02→21:04)
[2025-08-14] MEDS: MIDODRINE HCL 10 MG TABLET PO ×3 (09:02→17:07)
--- NOTE | 2025-08-14 09:49 | WPDANESPN ---
Anes - Prog Note Post-Op Date/Time: 08/14/25 09:49 Cardiovascular status: normal Respiratory status: normal Airway patency: baseline Mental status: baseline Post-Op hydration status: normal Vital Signs: Last Vital Signs Temp 36.4 C 08/14/25 08:07 Pulse 91 08/14/25 09:01 Resp 18 08/14/25 08:07 BP 102/71 08/14/25 08:07 Pulse Ox 100 08/14/25 08:07 O2 Del Method Room Air 08/14/25 03:21 O2 Flow Rate 5 08/11/25 12:45 Pain Score (VAS): 0 I/O: Intake & Output 08/13/25 08/14/25 08/14/25 23:59 07:59 15:59 Intake Total 573.3 444 240 Balance 573.3 444 240 Laboratory Tests 08/14/25 04:34 08/14/25 04:34 08/14/25 04:34 WBC 5.8 RBC 4.53 L Hgb 13.7 L Hct 41.9 L MCV 92.5 MCH 30.2 MCHC 32.7 RDW 13.1 Plt Count 177 MPV 11.8 H Sodium 134 L Potassium 4.0 Chloride 105 Carbon Dioxide 24 Anion Gap 5 BUN 22 H Creatinine 1.15 Estim Creat Clear Calc 52 Estimated GFR > 60 Glucose 83 Calcium 8.7 Magnesium 1.8 Total Bilirubin 0.7 AST 26 ALT 20 Alkaline Phosphatase 62 Total Protein 6.0 L Albumin 3.2 L Microbiology 08/10/25 08:51 Blood Blood Culture - Preliminary 08/10/25 08:51 Blood Blood Culture - Preliminary Post-procedural complaints: none Patient Feedback: Patient satisfied with anesthetic care.
--- NOTE | 2025-08-14 10:04 | PM.PNCARD ---
Progress Note: A&P Assessment and Plan (1) Cardiomyopathy: Code(s): I42.9 - Cardiomyopathy, unspecified Status: Acute (2) CHF (congestive heart failure): Qualifiers: Heart failure type: high output Qualified Code(s): I50.83 - High output heart failure Code(s): I50.9 - Heart failure, unspecified Status: Acute (3) Hypotension: Code(s): I95.9 - Hypotension, unspecified Status: Acute (4) Elevated troponin: Code(s): R79.89 - Other specified abnormal findings of blood chemistry Status: Acute (5) Atrial fibrillation with RVR: Code(s): I48.91 - Unspecified atrial fibrillation Status: Acute Plan Assessment: New onset systolic heart failure with LVEF 25-30%-this could be secondary to severe structural valve disease (severe primary MR) 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 However patient states his SBP has been low all his life. Will try adding a small dose of beta sivan-metoprolol 12.5 mg p.o. b.i.d. with holding parameters to hold if SBP less than 90 mm Hg LifeVest at discharge Ischemia evaluation given new systolic heart failure Structural heart disease consult as outpatient to further evaluate severe primary MR due to flail posterior leaflet Appears euvolemic on exam. No diuresis today Check weights, ins and outs, renal function daily Monitor on telemetry Check and replace electrolytes to keep potassium greater than 4 and magnesium greater than 2 Subjective Date/time seen: 08/14/25 10:04 Interval history: Reason for encounter: New onset AFib, new onset cardiomyopathy with LVEF 25-30% Interval history: 65-year-old male with new onset AFib status post cardioversion with successful return of sinus rhythm. He also has new onset cardiomyopathy with LVEF 25-30%. Interval history: Patient remains in sinus rhythm this morning. He denies any chest pain or shortness of breath. Telemetry shows sinus rhythm with rates in the 80s to 110s range. His blood presented is soft with systolic in the 90s to 100s range. Review of Systems Cardiovascular: Comments: As per HPI Respiratory: Comments: As per HPI Exam Narrative: General: Alert oriented x3, no acute distress Neck: Supple, no JVD Chest: Bibasilar crackles present, no rhonchi Cardiac: S1, S2 +, regular rate, regular rhythm, no murmurs or rubs Extremities: No pedal edema, no skin rash Neurologic: Alert and oriented x3, no focal neurological deficits Objective Data Vital Signs Vital Signs: Vital Signs - 24 hr 08/13/25 11:00 08/13/25 12:00 08/13/25 12:00 Temperature 36.5 C 36.8 C Pulse Rate 103 H 116 H 112 H Respiratory Rate 38 H 24 H 27 H Blood Pressure 90/69 L 104/85 Pulse Oximetry 96 97 98 Oxygen Delivery Room Air 08/13/25 12:00 08/13/25 12:00 08/13/25 13:00 Temperature Pulse Rate 112 H 111 H 107 H Respiratory Rate 13 Blood Pressure 104/85 101/88 Pulse Oximetry 98 Oxygen Delivery 08/13/25 14:00 08/13/25 14:00 08/13/25 14:00 Temperature Pulse Rate 110 H 114 H 114 H Respiratory Rate 19 Blood Pressure 105/81 105/81 Pulse Oximetry 100 Oxygen Delivery 08/13/25 14:30 08/13/25 14:45 08/13/25 15:00 Temperature Pulse Rate 78 77 81 Respiratory Rate 20 19 14 Blood Pressure 96/71 L 94/73 L 90/69 L Pulse Oximetry 99 96 98 Oxygen Delivery Room Air Room Air Room Air 08/13/25 15:00 08/13/25 16:00 08/13/25 16:00 Temperature 36.4 C 36.7 C Pulse Rate 90 90 90 Respiratory Rate 26 H 22 H Blood Pressure 90/69 L 164/66 H Pulse Oximetry 98 100 Oxygen Delivery 08/13/25 16:00 08/13/25 16:00 08/13/25 16:29 Temperature Pulse Rate 90 90 88 Respiratory Rate 23 H Blood Pressure 167/81 H Pulse Oximetry 100 Oxygen Delivery Autopap 08/13/25 17:00 08/13/25 18:00 08/13/25 18:00 Temperature Pulse Rate 76 Respiratory Rate Blood Pressure 111/71 111/70 Pulse Oximetry 98 Oxygen Delivery 08/13/25 20:00 08/13/25 20:00 08/13/25 20:00 Temperature 36.6 C Pulse Rate 80 93 84 Respiratory Rate 20 Blood Pressure 100/63 Pulse Oximetry 99 98 Oxygen Delivery Room Air 08/13/25 21:58 08/14/25 00:00 08/14/25 00:00 Temperature 36.9 C Pulse Rate 85 78 97 Respiratory Rate 20 Blood Pressure 99/68 L Pulse Oximetry 100 100 Oxygen Delivery Room Air 08/14/25 00:00 08/14/25 02:00 08/14/25 03:21 Temperature Pulse Rate 98 86 82 Respiratory Rate Blood Pressure Pulse Oximetry 98 Oxygen Delivery Room Air 08/14/25 04:00 08/14/25 04:00 08/14/25 06:00 Temperature 36.7 C Pulse Rate 82 78 81 Respiratory Rate 20 Blood Pressure 105/69 Pulse Oximetry 95 Oxygen Delivery 08/14/25 08:07 08/14/25 09:01 Temperature 36.4 C Pulse Rate 90 91 Respiratory Rate 18 Blood Pressure 102/71 Pulse Oximetry 100 Oxygen Delivery Intake/Output Intake/Output: Intake & Output 08/11/25 08/12/25 08/13/25 08/14/25 23:59 23:59 23:59 23:59 Intake Total 1284.0 1033.3 839.8 684 Output Total 1650 550 350 Balance -366.0 483.3 489.8 684 Meds/Results Medications: Active Medications Generic Name Dose Route Start Last Admin Trade Name Freq PRN Reason Stop Dose Admin Acetaminophen 650 mg 08/11/25 14:07 Acetaminophen 325 Mg Tablet PO Q4H PRN Headache, Fever or Mild Pain Hydrocodone Bitart/Acetaminophen 1 tab 08/11/25 14:07 Hydrocodone/Acetaminophen (*Crx) 5-325 Mg Tablet PO Q4H PRN Pain Rated 4-6 Albuterol/Ipratropium 3 ml 08/11/25 14:06 Ipratropium 0.5 Mg/Albuterol Sulfate 2.5 Mg (Base) Ampul.Neb 3 Ml INHALATION Q6HRT PRN Wheezing Amiodarone HCl 400 mg 08/13/25 17:00 08/14/25 09:01 Amiodarone Hcl 200 Mg Tablet PO 400 mg BID MICAELA Administration Apixaban 5 mg 08/11/25 21:00 08/14/25 09:02 Apixaban 5 Mg Tablet PO 5 mg Q12HR MICAELA Administration Midodrine 10 mg 08/12/25 09:00 08/14/25 09:02 Midodrine Hcl 10 Mg Tablet PO 10 mg TID MICAELA Administration Sodium Chloride 10 ml 08/11/25 22:00 08/14/25 06:32 Central Line Flush IV PUSH 10 ml Q8HR MICAELA Administration Sodium Chloride 10 ml 08/11/25 15:32 Central Line Flush IV PUSH PRN PRN with TPN bag changes Sodium Chloride 20 ml 08/11/25 15:32 Central Line Flush IV PUSH PRN PRN after blood draws Radiology Results: ITS Impressions Chest CT 08/09/25 15:51 IMPRESSION: 1. No pneumothorax. Large right apical air cyst formation with advanced emphysematous changes also present. Milder air cysts formation of the left apical region. 2. Small bilateral pleural effusions, and small pericardial effusion. Mild patchy groundglass opacification lung bases may represent mild edema versus developing pneumonitis. 3. Other chronic findings as above. Chest X-Ray 08/11/25 15:41 Impression: No acute cardiopulmonary abnormality. Labs Labs: Laboratory Results - last 24 hr 08/14/25 04:34 WBC 5.8 RBC 4.53 L Hgb 13.7 L Hct 41.9 L MCV 92.5 MCH 30.2 MCHC 32.7 RDW 13.1 Plt Count 177 MPV 11.8 H Sodium 134 L Potassium 4.0 Chloride 105 Carbon Dioxide 24 Anion Gap 5 BUN 22 H Creatinine 1.15 Estim Creat Clear Calc 52 Estimated GFR > 60 Glucose 83 Calcium 8.7 Magnesium 1.8 Total Bilirubin 0.7 AST 26 ALT 20 Alkaline Phosphatase 62 Total Protein 6.0 L Albumin 3.2 L
[2025-08-14] MEDS: METOPROLOL TARTRATE 12.5 MG TABLET PO (21:04)
[2025-08-15] VITALS (7 sets, daily range): BP systolic 97; BP diastolic 53; PULSE 76–90; RESP 16; TEMP 36.5; O2SAT 98
--- NOTE | 2025-08-15 02:50 | PC.NURSE ---
Patient Transferred from IMU to room 240. Hand off report obtained from LAKESHA Mendieta. patient orientated to floor. Fiance at bedside.
[2025-08-15 05:36] LABS: Hematocrit 41.4 % (42.0-52.0); Hemoglobin 13.7 g/dL (14.0-18.0); Mean Corpuscular HGB Conc 33.1 g/dl (32-36); Mean Corpuscular Hemoglobin 30.3 pg (26-34); Mean Corpuscular Volume 91.6 fl (80-100); Platelet Count Result 181 k/mm3 (150-375); Red Blood Count 4.52 M/mm3 (4.6-6.20); White Blood Count 5.8 K/mm3 (4.5-10.0)
[2025-08-15 06:11] LABS: Alanine Aminotransferase 20 U/L (6-50); Albumin Level 3.4 g/dL (3.5-5.1); Alkaline Phosphatase 62 U/L (38-126); Anion Gap 7 mmol/L (4-12); Aspartate Amino Transferase 28 U/L (17-59); Bilirubin,Total 0.9 mg/dL (0.2-1.3); Blood Urea Nitrogen 19 mg/dL (9-20); Calcium 8.8 mg/dL (8.4-10.2); Carbon Dioxide 24 mmol/L (22-30); Chloride 104 mmol/L (98-107); Estimated CRCL calculation 48 ml/min; Estimated Glomerular Filt Rate 59; Glucose 79 mg/dL (65-110); Magnesium 1.8 mg/dL (1.6-2.3); Potassium 4.1 mmol/L (3.4-5.0); Sodium 135 mmol/L (137-145); Total Protein 6.2 g/dL (6.3-8.2)
[2025-08-15] MEDS: APIXABAN 5 MG TABLET PO (08:13)
[2025-08-15] MEDS: METOPROLOL TARTRATE 12.5 MG TABLET PO (08:14)
[2025-08-15] MEDS: MIDODRINE HCL 10 MG TABLET PO ×2 (08:14→12:56)
[2025-08-15] MEDS: AMIODARONE HCL 200 MG TABLET 400 MG PO (08:14)
--- NOTE | 2025-08-15 08:17 | P.DS_ITS ---
DS: Admitting Diagnosis Discharge Date 08/15/2025 Admitting Diagnosis Palpitation DS: Discharge Diagnosis Discharge Diagnosis (1) Atrial fibrillation with RVR: Code(s): I48.91 - Unspecified atrial fibrillation Status: Acute Assessment and Plan: Amiodarone 400 mg p.o. b.i.d. Eliquis 5 mg p.o. b.i.d. Metoprolol 12.5 mg p.o. b.i.d. Cardiology is following S/P DC cardioversion (2) Hypotension: Code(s): I95.9 - Hypotension, unspecified Status: Acute Assessment and Plan: Episode of hypotension likely secondary to AFib with RVR. Amiodarone 400 mg p.o. b.i.d., midodrine 10 mg p.o. t.i.d. metoprolol 12.5 mg p.o. b.i.d. Patient was given cautious IVF bolus of fluids He was on Jaxon-Synephrine infusion for short while but has been off for more than 24 hours. (3) Cardiomyopathy: Code(s): I42.9 - Cardiomyopathy, unspecified Status: Acute Assessment and Plan: 08/10 echo Summary 1. Complete two-dimensional, color flow and Doppler transthoracic echocardiogram is performed. 2. The left ventricle is moderately dilated with severely reduced systolic function. There is severe eccentric left ventricular hypertrophy. The left ventricular ejection fraction is visually estimated to be 25-30%. 3. The right ventricle is normal in size with mildly reduced systolic function. 4. The mitral valve leaflets are normal. There is posteriorly directed ecc entric mitral regurgitation that is likely severe. Cardiology following Hold Entresto and beta-sivan due to low blood pressure Lasix also on hold (4) COPD (chronic obstructive pulmonary disease): Code(s): J44.9 - Chronic obstructive pulmonary disease, unspecified Status: Acute Assessment and Plan: History of COPD. Not in exacerbation Chest x-ray done on arrival to ICU shows no pneumothorax and hyperinflated lungs Chest CT on 08/09 1. No pneumothorax. Large right apical air cyst formation with advanced emphysematous changes also present. Milder air cysts formation of the left apical region. 2. Small bilateral pleural effusions, and small pericardial effusion. Mild patchy groundglass opacification lung bases may represent mild edema versus developing pneumonitis. 3. Other chronic findings as above. P.r.n. bronchodilators (5) Electrolyte abnormality: Code(s): E87.8 - Other disorders of electrolyte and fluid balance, not elsewhere classified Status: Acute Assessment and Plan: Magnesium and potassium replacement DS: Summary Hospital Course Hospital Course: 65-year-old male with a past medical history of mitral valve prolapse, peripheral vascular disease and former tobacco use who presented to the ER via ER urgent care for shortness of breath was found to be in AFib RVR. The patient reports that he was Short of breath with activity and that he may be coming down with a vitus. But then over the last 2 days he had began having orthopnea paroxysmal nocturnal dyspnea. He was having to sleep sitting up in a chair. He is also noted 1 week of lower extremity swelling. He denies prior history of CHF but does have known history of peripheral vascular disease in his lower extremities. he denies any history of known coronary artery disease but CT did demonstrate atherosclerosis and coronary disease. He denies chest pain productive cough fevers or chills. At the urgent care AFib RVR and on arrival to our facility he was in AFib with heart rates in the 140s. He received 1 dose of IV Cardizem 10 mg, 1 milligram/kilogram of Lovenox x1 and a dose of p.o. metoprolol and was started on a Cardizem drip. He had a chest x-ray which demonstrated possible small apical pneumothorax and trace bibasilar pleural effusions patient subsequently underwent noncontrast CT of the chest which rules out pneumothorax but has large right apical error cystic formation consistent with minutes assist hips changes with milder air cystic formation in the left apical region as well as small bilateral pleural effusions and small pericardial effusion with patchy ground-glass opacifications the lung bases which given the patient's clinical picture most likely consistent with mild pulmonary edema. The patient blood pressures were soft after being started on Cardizem. He states that his blood pressures are usually low. During the hospitalization patient was followed by Cardiology for New onset systolic heart failure with LVEF 25-30%-this could be secondary to severe structural valve disease (severe primary MR).Severe primary MR- flail posterior leaflet; posteriorly directed eccentric jet.New onset valvular (severe primary MR and dilated LA) atrial fibrillation with RVR status post cardioversion successfully to sinus rhythm.Hypotension-SBP in the 90s to 100s range.Elevated troponin without chest pain. Cardiology recommends: Continue amiodarone Continue apixaban without interruption Unable to add guideline directed medical therapy for cardiomyopathy given hypotension. However patient states his SBP has been low all his life. Will try adding a small dose of beta sivan-metoprolol 12.5 mg p.o. b.i.d. with holding parameters to hold if SBP less than 90 mm Hg [facility] at discharge Ischemia evaluation given new systolic heart failure Structural heart disease consult as outpatient to further evaluate severe primary MR due to flail posterior leaflet On the day of discharge, the patient was seen and examined. Vital signs were stable. Physical exam were stable and labs were reviewed at length. Discharge instructions, medications, and follow-up appointments were discussed with the p atient at length and all day questions were answered. ER warnings were given. Status at Discharge Cognitive/behavioral status at discharge: Stable Time Spent with Patient Time attestation: Total time spent providing and/or coordinating discharge services: 45 minute Exam Narrative: General: Pt is alert awake and in NAD Lungs/Chest: Trachea central course breath sound No significant wheezing or crackle. Cardiac: Irregular rate and rhythm. Normal S1 S2. No murmurs Circulation: Pedal pulses are intact and symmetrical. Abdomen: Normal bowel sounds.. Soft. NT. ND. Extremities: No clubbing, cyanosis or edema. Warm : Weber in place Neurologic: Follows commands. Moves all 4 extremities PERRL AO x3 Skin: No Rash Const: Other: Thin body habitus, appears older than stated age, no acute distress HENMT: Other: Mucous membranes are moist, no oral pharyngeal erythema, dentures in upper and lower jaw Eyes: Other: No scleral icterus, bilateral lens implants noted, pupils are equal and reactive Neck: Other: Positive JVD, no lymphadenopathy Resp: Other: Accessory muscle use, tachypnea, crackles at the bases Cardio: Other: Irregularly irregular, tachycardic, 2+ bilateral radial and pedal pulses GI: Other: Soft, nontender, nondistended, positive bowel sounds Skin: Other: No jaundice, no pallor Neuro: Other: Alert orient x4, speech is clear, no facial asymmetry, no localizing neurologic deficits noted during the course of conversation Extrem: Other: 1+ pitting edema to the ankles bilateral ly Psych: Other: The patient has markedly pressured speech, flight of thoughts, difficult to redirect, pleasant and cooperative DS: Data Data Completed and Pending Labs on day of discharge: Labs from last 24 hours 08/15/25 04:39 WBC 5.8 RBC 4.52 L Hgb 13.7 L Hct 41.4 L MCV 91.6 MCH 30.3 MCHC 33.1 RDW 13.1 Plt Count 181 MPV 12.2 H Sodium 135 L Potassium 4.1 Chloride 104 Carbon Dioxide 24 Anion Gap 7 BUN 19 Creatinine 1.24 Estim Creat Clear Calc 48 Estimated GFR 59 Glucose 79 Calcium 8.8 Magnesium 1.8 Total Bilirubin 0.9 AST 28 ALT 20 Alkaline Phosphatase 62 Total Protein 6.2 L Albumin 3.4 L Preliminary micro results at discharge 08/10/25 08:51 Blood Culture - Preliminary Blood 08/10/25 08:51 Blood Culture - Preliminary Blood Additional Comments Additional comments: ITS Impressions Chest X-Ray 08/09/25 15:27 IMPRESSION: Possible small right apical pneumothorax. Trace bibasilar effusions. Correlate with chest CT. Chest CT 08/09/25 15:51 IMPRESSION: 1. No pneumothorax. Large right apical air cyst formation with advanced emphysematous changes also present. Milder air cysts formation of the left apical region. 2. Small bilateral pleural effusions, and small pericardial effusion. Mild patchy groundglass opacification lung bases may represent mild edema versus developing pneumonitis. 3. Other chronic findings as above. Chest X-Ray 08/11/25 13:42 IMPRESSION: 1. No significant change from 2 days prior. 2. Pleural effusions with bibasilar atelectasis. 3. Emphysema. Chest X-Ray 08/11/25 15:41 Impression: No acute cardiopulmonary abnormality. Discharge Plan Discharge Attending physician on discharge: Ankur Ornelas Consulting providers: Saul Betancur; Mirza Arboleda Discharging Clinician: Ankur Ornelas Anticipated Discharge Date/Time: 08/15/25 09:00 Patient Disposition: Home Activity: as tolerated Diet: heart healthy Discharge Instructions: Discharged with [facility] Close follow-up with Cardiology Please visited PCP within a week upon discharge In the event of chest pain, shortness a breath or palpitation please visit the nearby ED Patient Instructions: Antibiotic Form, Apixaban (By mouth) Patient Language: Romanian Stand Alone Forms: General Discharge Information Follow-up/Referrals: Saul Betancur MD [Physician, Cardiology] UNKNOWN,DOCTOR [Non-Staff] Discharge Medications: New amiodarone [Pacerone] 200 mg Tablet 400 mg PO BID Qty: 60 0RF Eliquis 5 mg Tablet 5 mg PO Q12HR Qty: 60 0RF metoprolol tartrate 25 mg tablet 12.5 mg PO BID Qty: 60 0RF midodrine 10 mg Tablet 10 mg PO TID Qty: 60 0RF Date of admission: 08/10/25 18:25 Primary Care Provider: EmeliaCoty Admitting Provider: Magda Corral Attending physician on admission: Magda Corral Condition: Stable
--- NOTE | 2025-08-15 09:05 | PM.PNCARD ---
Progress Note: A&P Assessment and Plan (1) Cardiomyopathy: Code(s): I42.9 - Cardiomyopathy, unspecified Status: Acute (2) CHF (congestive heart failure): Qualifiers: Heart failure type: high output Qualified Code(s): I50.83 - High output heart failure Code(s): I50.9 - Heart failure, unspecified Status: Acute (3) Hypotension: Code(s): I95.9 - Hypotension, unspecified Status: Acute (4) Elevated troponin: Code(s): R79.89 - Other specified abnormal findings of blood chemistry Status: Acute (5) Atrial fibrillation with RVR: Code(s): I48.91 - Unspecified atrial fibrillation Status: Acute Plan Assessment: New onset systolic heart failure with LVEF 25-30%-this could be secondary to severe structural valve disease (severe primary MR) Severe primary MR- flail posterior leaflet; posteriorly directed eccentric jet New onset valvular (severe primary MR and dilated LA) atrial fibrillation with RVR status post cardioversion successfully to sinus rhythm Hypotension-SBP in the 90s to 100s range Elevated troponin without chest pain- Plan: Continue amiodarone Continue apixaban without interruption GDMT- started low dose of metoprolol 12.5 mg BID which he is tolerating. His blood pressure remains sofr with SBP in the 90s. Per patient this is normal for him and he has low blood pressure all his life. Other GDMT can be added as an outpatient [facility] at discharge Ischemia evaluation as outpatient Structural heart disease consult as outpatient to further evaluate severe primary MR due to flail posterior leaflet Appears euvolemic on exam. No diuresis today Check weights, ins and outs, renal function daily Monitor on telemetry Check and replace electrolytes to keep potassium greater than 4 and magnesium greater than 2 Subjective Date/time seen: 08/15/25 09:05 Interval history: Reason for encounter: New onset AFib, new onset cardiomyopathy with LVEF 25-30% Interval history: 65-year-old male with new onset AFib status post cardioversion with successful return of sinus rhythm. He also has new onset cardiomyopathy with LVEF 25-30%. Interval history: Patient wants to go home today. No chest pain or shortness of breath. Telemetry shows sinus rhythm. His SBP is in the 90s. He was started on low dose metoprolol yesterday which he is tolerating. Review of Systems Cardiovascular: Comments: As per HPI Respiratory: Comments: As per HPI Exam Narrative: General: Alert oriented x3, no acute distress Neck: Supple, no JVD Chest: Bibasilar crackles present, no rhonchi Cardiac: S1, S2 +, regular rate, regular rhythm, no murmurs or rubs Extremities: No pedal edema, no skin rash Neurologic: Alert and oriented x3, no focal neurological deficits Objective Data Vital Signs Vital Signs: Vital Signs - 24 hr 08/14/25 10:00 08/14/25 11:40 08/14/25 12:00 Temperature 36.7 C Pulse Rate 92 80 82 Respiratory Rate 18 Blood Pressure 100/65 Pulse Oximetry 99 Oxygen Delivery 08/14/25 14:00 08/14/25 16:00 08/14/25 16:15 Temperature 36.7 C Pulse Rate 83 83 79 Respiratory Rate 18 Blood Pressure 99/69 L Pulse Oximetry 97 Oxygen Delivery 08/14/25 17:06 08/14/25 20:00 08/14/25 20:00 Temperature 36.4 C Pulse Rate 87 75 85 Respiratory Rate 18 Blood Pressure 93/64 L Pulse Oximetry 97 98 Oxygen Delivery Room Air 08/14/25 20:00 08/14/25 21:04 08/14/25 23:05 Temperature Pulse Rate 78 78 Respiratory Rate Blood Pressure Pulse Oximetry Oxygen Delivery Room Air 08/15/25 00:00 08/15/25 04:00 08/15/25 04:40 Temperature 36.5 C Pulse Rate 76 87 81 Respiratory Rate 16 Blood Pressure 97/53 L Pulse Oximetry 98 Oxygen Delivery 08/15/25 08:07 08/15/25 08:14 08/15/25 08:14 Temperature Pulse Rate 90 80 80 Respiratory Rate 16 Blood Pressure Pulse Oximetry 98 Oxygen Delivery Room Air Intake/Output Intake/Output: Intake & Output 08/12/25 08/13/25 08/14/25 08/15/25 23:59 23:59 23:59 23:59 Intake Total 1033.3 839.8 1923 Output Total 550 350 Balance 483.3 489.8 4 Meds/Results Medications: Active Medications Generic Name Dose Route Start Last Admin Trade Name Freq PRN Reason Stop Dose Admin Acetaminophen 650 mg 08/11/25 14:07 Acetaminophen 325 Mg Tablet PO Q4H PRN Headache, Fever or Mild Pain Hydrocodone Bitart/Acetaminophen 1 tab 08/11/25 14:07 Hydrocodone/Acetaminophen (*Crx) 5-325 Mg Tablet PO Q4H PRN Pain Rated 4-6 Albuterol/Ipratropium 3 ml 08/11/25 14:06 Ipratropium 0.5 Mg/Albuterol Sulfate 2.5 Mg (Base) Ampul.Neb 3 Ml INHALATION Q6HRT PRN Wheezing Amiodarone HCl 400 mg 08/13/25 17:00 08/15/25 08:14 Amiodarone Hcl 200 Mg Tablet PO 400 mg BID MICAELA Administration Apixaban 5 mg 08/11/25 21:00 08/15/25 08:13 Apixaban 5 Mg Tablet PO 5 mg Q12HR MICAELA Administration Metoprolol Tartrate 12.5 mg 08/14/25 21:00 08/15/25 08:14 Metoprolol Tartrate 12.5 Mg Tablet PO 12.5 mg Q12HR MICAELA Administration Midodrine 10 mg 08/12/25 09:00 08/15/25 08:14 Midodrine Hcl 10 Mg Tablet PO 10 mg TID MICAELA Administration Radiology Results: ITS Impressions Chest CT 08/09/25 15:51 IMPRESSION: 1. No pneumothorax. Large right apical air cyst formation with advanced emphysematous changes also present. Milder air cysts formation of the left apical region. 2. Small bilateral pleural effusions, and small pericardial effusion. Mild patchy groundglass opacification lung bases may represent mild edema versus developing pneumonitis. 3. Other chronic findings as above. Chest X-Ray 08/11/25 15:41 Impression: No acute cardiopulmonary abnormality. Labs Labs: Laboratory Results - last 24 hr 08/15/25 04:39 WBC 5.8 RBC 4.52 L Hgb 13.7 L Hct 41.4 L MCV 91.6 MCH 30.3 MCHC 33.1 RDW 13.1 Plt Count 181 MPV 12.2 H Sodium 135 L Potassium 4.1 Chloride 104 Carbon Dioxide 24 Anion Gap 7 BUN 19 Creatinine 1.24 Estim Creat Clear Calc 48 Estimated GFR 59 Glucose 79 Calcium 8.8 Magnesium 1.8 Total Bilirubin 0.9 AST 28 ALT 20 Alkaline Phosphatase 62 Total Protein 6.2 L Albumin 3.4 L
[2025-08-15 11:44] LABS: Alveolar/Arterial O2 Gradient 36.0 mmHg; Fractional Inspired Oxygen 21 %; HCO3 ABG 20.4 mEq/l (22.0-26.0); Oxygen Content ABG 20.1 %vol (16.0-22.0); Oxygen Saturation ABG 95.9 % (95.0-100.0); PCO2 ABG 31.1 mmHg (35.0-45.0); PO2 ABG 76.5 mmHg (80.0-100.0); PO2 FiO2 Ratio Arterial Blood 3.64 %
[2025-08-15 11:46] LABS: Modified Allen's Test Pass
[2025-08-15 11:47] LABS: Site Drawn LEFT BRACHIAL
[2025-08-15 12:03] LABS: Anion Gap 7 mmol/L (4-12); Blood Urea Nitrogen 18 mg/dL (9-20); Calcium 8.8 mg/dL (8.4-10.2); Carbon Dioxide 22 mmol/L (22-30); Chloride 106 mmol/L (98-107); Estimated CRCL calculation 52 ml/min; Estimated Glomerular Filt Rate > 60; Glucose 100 mg/dL (65-110); Potassium 4.8 mmol/L (3.4-5.0); Sodium 135 mmol/L (137-145)
--- NOTE | 2025-08-15 13:31 | PCNWS ---
Weekly nutritional screen. Patient is tolerating current diet with adequate intake. No weight loss reported. No nutritional needs at this time.
== END 2025-08-15 13:50 | disposition home or self-care (01) | DRG 308 ==
LOC: ANHED 18:51 → ANHIMU 20:05 → ANH2MED 08-15 09:01 → ANHICU 08-20 06:40 → ANHIMU 08-20 06:40
PROVIDERS: Internal Medicine; Internal Medicine Cardiovascular Disease; Admitting Provider Internal Medicine; Emergency Provider Emergency Medicine; PCP Internal Medicine; Visit Provider General Practice
PROC: 5A2204Z Restoration of Cardiac Rhythm, Single (ICD-10-PCS; principal; 2025-08-13 13:00)
PROC: B24BZZ4 Ultrasonography of Heart with Aorta, Transesophageal (ICD-10-PCS; CPT 93312; 2025-08-13 13:00)
DX: I48.91 Unspecified atrial fibrillation (principal); I50.21 Acute systolic (congestive) heart failure; J93.9 Pneumothorax, unspecified; Z59.00 Homelessness unspecified; E87.8 Other disorders of electrolyte and fluid balance, not elsewhere classified; I73.9 Peripheral vascular disease, unspecified; I34.1 Nonrheumatic mitral (valve) prolapse; I25.10 Atherosclerotic heart disease of native coronary artery without angina pectoris; I70.90 Unspecified atherosclerosis; I42.9 Cardiomyopathy, unspecified; I95.9 Hypotension, unspecified; J98.4 Other disorders of lung; J44.9 Chronic obstructive pulmonary disease, unspecified; R79.89 Other specified abnormal findings of blood chemistry; Z20.822 Contact with and (suspected) exposure to COVID-19; Z87.891 Personal history of nicotine dependence; Z98.41 Cataract extraction status, right eye; Z96.1 Presence of intraocular lens
CPT/HCPCS: 36415; 36569; 36600; 71045; 71250; 80048; 80053; 80061; 82805; 82948; 83735; 83880; 84439; 84443; 84480; 84484; 85018; 85025; 85027; 87040; 87637; 87641; 92960; 93005; 93306; 93312; 93320; 93325; 96361; 96365; 96366; 96372; 96375; 99285; A9270; C1751; G0378; J0283; J1163; J1650; J1938; J1956; J2003; J2371; J3475; J7030; J7040; J7050